=== PATIENT | male | born 1995 | race Caucasian/White ===

== ENCOUNTER 2023-09-25 19:59 | Inpatient (IN) | payer OTHER, SELFPAY ==
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
--- OUTSIDE RECORDS SUMMARY | 2023-09-25 20:02 | XMS_ITS | Continuity of Care Document ---
Author Organization [facility] Address [address] [place] [address]- Care Team Providers Care Rn Mds Coordinator Name Role Phone Emeli Barreto NP Primary Care Physician [place] [facility] [place](s[place] 04/22/21 - 05/22/21 [facility] [address] [place] [address] Attending Physician: Eloisa Erickson Admitting Physician: AdmtrEloisa Referring Physician: Admtr, ArArun Allergies, Adverse Reactions, Alerts Substance Reaction Severity [...] Note: vis given 9Admin Note: TD Medications aspirin 81 mg oral tablet, chewable 81 mg, By Mouth, Daily, # 30 tablet, Refills 0, Tot. Refills 0, Maintenance, 11/18/20 12:24:00 EDT,Route to Pharmacy Electronically, [facility]/pharmacy #[id number], Partial fill upon patient request if the prescription is for a schedule II opioid drug., 180, cm,... Start Date: 11/18/20 Status: Ordered gabapentin 300 mg oral capsule 300 mg, 1, capsule, By Mouth, 3 times a day, # 90 capsule, Refills 0, Tot. Refills 0, Maintenance, 11/18/20 12:25:00 EDT, Route to Pharmacy Electronically, [facility]/pharmacy #[id number], Partial fill upon patient request if the prescription is for a schedule II... Start Date: 11/18/20 Status: Ordered lidocaine 5% topical film See Instructions, Topically Daily, # 30 patch, 0 Refills, Maintenance, 11/18/20 12:25:00 EDT, Patch, [facility]/pharmacy #[id number], Partial fill upon patient request if the prescription is for a schedule II opioid drug., Topically Daily, 180, cm, 11/12/20 10:09:... Start Date: 11/18/20 Status: Ordered pantoprazole 40 mg oral delayed release tablet = 40 mg, By Mouth, 2 times a day, # 30 capsule, 0 Refills, Maintenance, 11/18/20 12:26:00 EDT, EC Tablet, 180, cm, 11/12/20 10:09:00 EDT, Height, 59.5, kg, 11/01/20 16:46:00 EDT, Dry Weight Start Date: 11/18/20 Status: Ordered propranolol 10 mg oral tablet 10 mg, 1, tablet, By Mouth, Every 8 hours, # 90 tablet, Refills 0, Tot. Refills 0, Maintenance, 11/18/20 12:27:00 EDT, Route to Pharmacy Electronically, [facility]/pharmacy #[id number], Partial fill upon patient request if the prescription is for a schedule II opi... Start Date: 11/18/20 Status: Ordered traMADol 50 mg oral tablet 1 tablet = 50 mg, By Mouth, Every 6 hours, 0 Refills, Maintenance, 11/28/20 13:48:00 EDT, Partial fill upon patient request if the prescription is for a schedule II opioid drug. Start Date: 11/28/20 Status: Ordered Problem List Condition Effective Dates [...] Post traumatic stress disord er (PTSD)(Confirmed) Active Scoliosis(Confirmed) 94 Active Pneumatocele of lung(Confirmed) Active Thrombocytosis(Confirmed) Active Underweight(Confirmed) Active Social History Social History Type Response Smoking Status Former smoker, quit more than 30 days ago entered on: 12/13/20 Sex
--- OUTSIDE RECORDS SUMMARY | 2023-09-25 20:03 | XMS_ITS | Continuity of Care Document ---
Author Organization [facility] Address [address] [place] [address]- Care Team Providers Care Administrative Program Specialist Name Role Phone Emeli Barreto NP Primary Care Physician Encounter [facility] Date(s): 09/11/21 - 09/18/21 [facility] Adult [address] [place] [address]- Encounter Diagnosis Chronic back pain(Discharge Diagnosis) - 09/15/21 Chronic neck pain(Discharge Diagnosis) - 09/15/21 Attending Physician: Ozzie Cochran MD Referring Physician: Emeli Barreto NP Allergies, Adverse Reactions, Alerts Substance Reaction Severity Status Adhesive Bandage 1 rash Active 1Clear Surgical Tape Immunizations Given and Recorded Vaccine Date Status Refusal Reason hepatitis B adult vaccine 03/25/21 Given influenza virus vaccine, inactivated 03/25/21 Give n influenza virus vaccine, inactivated 04/25/10 Give n influenza virus vaccine, inactivated 1 04/07/10 Gi keay Meningococcal Conjugate Vaccine 03/25/21 Given Meningococcal Conjugate [...] 06/24/21 10:08:00 EST, Route to Pharmacy Electronically, [facility]/pharmacy #[id number], Partial fill upon patient request if the [...] Thrombocytosis(Confirmed) Active Brain injury(Confirmed) Active Underweight(Confirmed) Active Diagnosis Diagnosis Type Effective Dates Health Status Cl inical Service Informant Chronic back pain Discharge Diagnosis 09/15/21 Chronic neck pain Discharge Diagnosis 09/15/21 Vital Signs Most recent to oldest [Reference Range]: 1 Height 180 cm (09/11/21 1:15 PM) Weight 58.8 kg (09/11/21 1:15 PM) Oxygen Saturation [94-100 %] 100 % (09/11/21 1:15 PM) Pulse Rate [55-90 bpm] 79 bpm (09/11/21 1:15 PM) Body Mass Index [18.5-24.99] 18.15 *L* (09/11/21 1:15 PM) Blood Pressure [90-138/55-84 mm Hg] 111/ 58mm Hg (09/11/21 1:15 PM) Temperature [96.8-100.4 DegF] 97.9 DegF (09/11/21 1:15 PM) Blood pressure sites Arm, right (09/11/21 1:15 PM) Temperature Route Oral (09/11/21 1:15 PM) Weight Obtained Via Standing scale (09/11/21 1:15 PM) Social History Social History Type Response Smoking Status Former smoker, quit more than 30 days ago entered on: 12/13/20 Sex
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
--- OUTSIDE RECORDS SUMMARY | 2023-09-25 20:03 | XMS_ITS | Continuity of Care Document ---
Author Organization [facility] Address [address] [place] [address]- Care Team Providers Care Data Processing Operator Name Role Phone Dorcas Coulter Primary Care Physician Encounter [facility] Date(s): 10/30/22 - 12/11/22 [facility] Adult [address] [place] [address]- Attending Physician: Dorcas Coulter Allergies, Adverse Reactions, Alerts Substance Reaction Severity [...] Thrombocytosis Confirmed Active Brain injury Confirmed Active Social History Social History Type Response Smoking Status Former smoker, quit more than 30 days ago entered on: 12/13/20 Sex Patient Care team information Care Team Personnel Name: Carmelo Cleaning RN Position: [facility] ED RN W/OE and Tasks Member Role: Primary Care Nurse Name: Abel Egan RN Position: [facility] RN Member Role: Primary Care Nurse Name: Sofi Lord RN Position: [facility] RN Member Role: Primary Care Nurse Name: Farheen Man RN Position: [facility] RN Member Role: Primary Care Nurse Name: Hermes Lazaro RN Position: [facility] RN Supv Member Role: Primary Care Nurse Name: Dorcas Coulter Position: [facility] PCO Associate Professional Member Role: PCP Address: Address: [address] [place] [address]- Name: Alyssa Denson RN Position: [facility] RN Member Role: Primary Care Nurse Name: Tod Monzon RN Position: [facility] RN Member Role: Primary Care Nurse Name: Erum Farley NP Position: [facility] Associate Professional Member Role: Primary Care Nurse Address: Address: [address] [place] [address] [place] [address]- Care Team Related Persons Name: GUDELIA ZULETA Address: home [address] [place] [id number] Name: AMISHA FARMER Address: home [address] [place] [address] Name: AMISHA FARMER Address: [address] [place] [address] Name: SHRUTHI BRADY Address: [address] [address]
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
--- OUTSIDE RECORDS SUMMARY | 2023-09-25 20:03 | XMS_ITS | Continuity of Care Document ---
Author Organization [facility] Address [address] [place] [address] ve [address] [place] [address]- Care Team Providers Care Braker Passenger Train Name Role Phone Estevan AVERY, Emeli Primary Care Physician [phone] [facility]counter [facility] Date(s): 11/28/20 - 12/28/[address] [place] [address]- Attending Physician: Eloisa Erickson Admitting Physician: Eloisa Erickson Referring Physician: AdmtrEloisa Allergies, Adverse Reactions, Alerts Substance Reaction Severity Status Adhesive Bandage 1 Active 1Clear Surgical Tape Immunizations Given and Recorded Vaccine Date Status Refusal Reason meningococcal group B vaccine 11/26/20 Given meningococcal group B vaccine 1 10/23/20 Given haemophilus b conjugate (PRP-T) vaccine 10/25/20 G iven Meningococcal Conjugate Vaccine 2 10/23/20 Given Meningococcal Conjugate Vaccine 3 05/26/07 Given pneumococcal 13-valent vaccine 4 10/23/20 Given Varicella Virus Vaccine 04/25/10 Given Varicella Virus Vaccine 5 10/16/95 Given Hepatitis A Pediatric Vaccine 04/25/10 Given influenza virus vaccine, inactivated 04/25/10 Give n influenza virus vaccine, inactivated 6 04/07/10 Gi keya influ virus vac, H1N1, inactive(oldterm) 7 04/08/09 [...] Hepatitis B Vaccine (old term) 94 Given 1Early/Late Reason: Early/Late Reason: Other : waiting on dose from pharmacy 2Early/Late Reason: Early/Late Reason: Other : waiting on dose from pharmacy 3Admin Note: VIS GIVEN---MENACTRA, SANOFI PASTEUR 4Early/Late Reason: Early/Late Reason: Other : waiting for dose from pharmacy 5Admin Note: disease on 6Result Comment: influenza not given at this time, patient to return with mother. 7Admin Note: vis given 8Admin Note: vis given 9Admin Note: TD Medications amantadine 100 mg oral capsule 100 mg, 1, capsule, By Mouth, 2 times a day, # 60 capsule, Refills 0, Tot. Refills 0, Acute 01/14/21 12:00:00 EDT, 11/18/20 12:24:00 EDT, Route to Pharmacy Electronically, [facility]/pharmacy #[id number], Partialfill upon patient request if the prescription is fo... Start Date: 11/18/20 Stop Date: 01/14/21 Status: Ordered aspirin 81 mg oral tablet, chewable 81 mg, By Mouth, Daily, # 30 tablet, Refills 0, Tot. Refills 0, Maintenance, 11/18/20 12:24:00 EDT,Route to Pharmacy Electronically, [facility]/pharmacy #[id number], Partial fill upon patient request if the prescription is for a schedule II opioid drug., 180, cm,... Start Date: 11/18/20 Status: Ordered gabapentin 300 mg oral capsule 300 mg, 1, capsule, By Mouth, 3 times a day, # 90 capsule, Refills 0, Tot. Refills 0, Maintenance, 11/18/20 12:25:00 EDT, Route to Pharmacy Electronically, [facility]/pharmacy #[id number], Partial fill upon patient request if the prescription is for a schedule II... Start Date: 11/18/20 Status: Ordered lidocaine 5% topical film See Instructions, Topically Daily, # 30 patch, 0 Refills, Maintenance, 11/18/20 12:25:00 EDT, Patch, [facility]/pharmacy #[id number], Partial fill upon patient request if the prescription is for a schedule II opioid drug., Topically Daily, 180, cm, 11/12/20 10:09:... Start Date: 11/18/20 Status: Ordered melatonin 3 mg oral tablet, extended release = 9 mg, By Mouth, Daily at bedtime, PRN Sleep, # 60 tablet, 0 Refills, Acute 01/14/21 12:00:00 EDT,11/18/20 12:26:00 EDT, ER Tablet, [facility]/pharmacy #[id number], Partial fill upon patient request if the prescription is for a schedule II opioid drug., 9 mg By... Start Date: 11/18/20 Stop Date: 01/14/21 Status: Ordered pantoprazole 40 mg oral delayed [...] 11/18/20 12:27:00 EDT, Route to Pharmacy Electronically, [facility]/pharmacy #[id number], Partial fill upon patient request if [...]
--- OUTSIDE RECORDS SUMMARY | 2023-09-25 20:03 | XMS_ITS | Continuity of Care Document ---
Author Organization [facility] Kyle Rob lt Address [address] [place] [address]- Care Team Providers Care Mortgage Closing Clerk Name Role Phone Emeli Barreto NP Primary Care Physician [facility] Date[facility]s): 12/17/20 - 01/16/21 [facility] [place] Adult [address] [place] [address]- Attending Physician: Admtr, Bry8 Admitting Physician: Admtr, Eloisa Referring Physician: Admtr, Ar8 Allergies, Adverse Reactions, [...] Maintenance, 11/18/20 12:24:00 EDT,Route to Pharmacy Electronically, [facility]/pharmacy #[id number], Partial fill upon patient request if the prescription is for a schedule II opioid drug., 180, cm,... Start Date: 11/18/20 Status: Ordered gabapentin 300 mg oral capsule 300 mg, 1, capsule, By Mouth, 3 times a day, # 90 capsule, Refills 0, Tot. Refills 0, Maintenance, 11/18/20 12:25:00 EDT, Route to Pharmacy Electronically, [facility]/pharmacy #[id number], Partial fill upon patient request if the prescription is for a schedule II... Start Date: 11/18/20 Status: Ordered lidocaine 5% topical film See Instructions, Topically Daily, # 30 patch, 0 Refills, Maintenance, 11/18/20 12:25:00 EDT, Patch, [facility]/pharmacy #[id number], Partial fill upon patient request if [...] 11/18/20 12:27:00 EDT, Route to Pharmacy Electronically, [facility]/pharmacy #[id number], Partial fill upon patient request if [...]
--- OUTSIDE RECORDS SUMMARY | 2023-09-25 20:03 | XMS_ITS | Continuity of Care Document ---
Author Organization [facility] Kyle Rob Address [address] [place] [address]- Care Team Providers Care Group Social Worker Name Role Phone Estevan AVERY, Emeli Primary Care Physician [place] [facility] [place] - 04/29/21 [facility] Franko Kirkley Adult [address] [place] [address]- Encounter Diagnosis Chronic headaches(Discharge Diagnosis) - 04/22/21 Memory loss(Discharge Diagnosis) - 04/22/21 Elevated alkaline phosphatase level(Discharge Diagnosis) - 04/22/21 Thrombocytosis(Discharge Diagnosis) - 04/22/21 History of splenectomy(Discharge Diagnosis) - 04/29/21 Attending Physician: Emeli Barreto NP Referring Physician: Zhen Crowley MD Allergies, Adverse Reactions, Alerts Substance Reaction [...] Maintenance, 11/18/20 12:24:00 EDT,Route to Pharmacy Electronically, [facility]/pharmacy #[id number], Partial fill upon patient request if the prescription is for a schedule II opioid drug., 180, cm,... Start Date: 11/18/20 Status: Ordered gabapentin 300 mg oral capsule 300 mg, 1, capsule, By Mouth, 3 times a day, # 90 capsule, Refills 0, Tot. Refills 0, Maintenance, 11/18/20 12:25:00 EDT, Route to Pharmacy Electronically, [facility]/pharmacy #[id number], Partial fill upon patient request if the prescription is for a schedule II... Start Date: 11/18/20 Status: Ordered lidocaine 5% topical film See Instructions, Topically Daily, # 30 patch, 0 Refills, Maintenance, 11/18/20 12:25:00 EDT, Patch, [facility]/pharmacy #[id number], Partial fill upon patient request if the prescription is for a schedule II opioid drug., Topically Daily, 180, cm, 11/12/20 10:09:... Start Date: 11/18/20 Status: Ordered Mavyret 100 mg-40 mg oral tablet 3 tablet, By Mouth, Daily, with food, # 84 tablet, 1 Refills, Acute 05/19/21 14:30:00 EST, :53:00 EST, Tablet, [facility], Partial fill upon patient [...] 11/18/20 12:27:00 EDT, Route to Pharmacy Electronically, [facility]/pharmacy #[id number], Partial fill upon patient request if [...] of lung(Confirmed) Active Thrombocytosis(Confirmed) Active Underweight(Confirmed) Active Diagnosis Diagnosis Type Effective Dates Health Status Clinical Service Informant Chronic headaches Discharge Diagnosis 04/22/21 Memory loss Discharge Diagnosis 04/22/21 Elevated alkaline phosphatase level Discharge Diagnosis 04/22/21 Thrombocytosis Discharge Diagnosis 04/22/21 History of splenectomy Discharge Diagnosis 04/29/21 Vital Signs Most recent to oldest [Reference Range]: 1 Height 180 cm (04/22/21 4:00 PM) Weight 59.6 kg (04/22/21 4:00 PM) Oxygen Saturation [94-100 %] 98 % (04/22/21 4:00 PM) Pulse Rate [55-90 bpm] 78 bpm (04/22/21 4:00 PM) Body Mass Index [18.5-24.99] 18.4 *L* (04/22/21 4:00 PM) Blood Pressure [90-138/55-84 mm Hg] 134/ 83mm Hg (04/22/21 4:00 PM) Blood pressure sites Arm, right (04/22/21 4:00 PM) Social History Social History Type Response Smoking Status Former smoker, quit more than 30 days ago entered on: 12/13/20 Sex
--- OUTSIDE RECORDS SUMMARY | 2023-09-25 20:03 | XMS_ITS | Continuity of Care Document ---
Author Organization [facility] Kyle Rob Address [address] [place] [address]- Care Team Providers Care Copier Operator Name Role Phone Emeli Barreto NP Primary Care Physician [phone] [facility] Date(s): 12/17/20 - 01/16/21 [facility] Adult [address] [place] [address]- Attending Physician: Admtr, Bry8 Admitting Physician: Admtr, [...] Maintenance, 11/18/20 12:24:00 EDT,Route to Pharmacy Electronically, [facility]/pharmacy #[id number], Partial fill upon patient request if the prescription is for a schedule II opioid drug., 180, cm,... Start Date: 11/18/20 Status: Ordered gabapentin 300 mg oral capsule 300 mg, 1, capsule, By Mouth, 3 times a day, # 90 capsule, Refills 0, Tot. Refills 0, Maintenance, 11/18/20 12:25:00 EDT, Route to Pharmacy Electronically, [facility]/pharmacy #[id number], Partial fill upon patient request if the prescription is for a schedule II... Start Date: 11/18/20 Status: Ordered lidocaine 5% topical film See Instructions, Topically Daily, # 30 patch, 0 Refills, Maintenance, 11/18/20 12:25:00 EDT, Patch, [facility]/pharmacy #[id number], Partial fill upon patient request [...] 11/18/20 12:27:00 EDT, Route to Pharmacy Electronically, [facility]/pharmacy #[id number], Partial fill upon patient request [...]
--- OUTSIDE RECORDS SUMMARY | 2023-09-25 20:03 | XMS_ITS | Continuity of Care Document ---
Author Organization [facility] Address Unknown Care Team Providers Care Log Chipper Name Role Phone Estevan AVERY, Emeli Primary Care Physician [phone] [facility]counter [facility] Date(s): 04/23/21 - 05/23/21 [facility] Allergies, Adverse Reactions, Alerts Substance Reaction Severity [...] Maintenance, 11/18/20 12:24:00 EDT,Route to Pharmacy Electronically, [facility]/pharmacy #[id number], Partial fill upon patient request [...] 0 Refills, Maintenance, 11/18/20 12:25:00 EDT, Patch, [facility]/pharmacy #[id number], Partial fill upon patient request [...] 11/18/20 12:27:00 EDT, Route to Pharmacy Electronically, [facility]/pharmacy #[id number], Partial fill upon patient request [...]
--- OUTSIDE RECORDS SUMMARY | 2023-09-25 20:03 | XMS_ITS | Continuity of Care Document ---
Author Organization [facility] Address [address] [place] [address]- Care Team Providers Care Room Service Food Server Name Role Phone Emeli Barreto NP Primary Care Physician [place] [facility] [place] - 04/24/21 [facility] [address] [place] [address] Attending Physician: Manan Evans MD Admitting Physician: Manan Evans MD Referring Physician: Emeli Barreto NP Allergies, [...] EDT,Route to Pharmacy Electronically, [facility]/pharmacy #[id number], Partial fill upon patient request if the [...] Acute 05/19/21 14:30:00 EST, :53:00 EST, Tablet, [facility], Partial fill upon patient request [...]
--- OUTSIDE RECORDS SUMMARY | 2023-09-25 20:03 | XMS_ITS | Continuity of Care Document ---
Author Organization [facility] Kyle Rob Address [address] [place] [address]- Care Team Providers Care Outcomes Manager Name Role Phone Estevan AVERY, Emeli Primary Care Physician [facility] Date(s): 01/03/21 - 02/02/21 [facility] Adult [address] [place] [address]- Allergies, Adverse Reactions, Alerts Substance Reaction Severity [...] Maintenance, 11/18/20 12:24:00 EDT,Route to Pharmacy Electronically, [facility]/pharmacy #[id number], Partial fill [...] 0 Refills, Maintenance, 11/18/20 12:25:00 EDT, Patch, [facility]/pharmacy #[id number], Partial fill upon patient [...] 11/18/20 12:27:00 EDT, Route to Pharmacy Electronically, [facility]/pharmacy #[id number], Partial fill upon patient [...]
--- OUTSIDE RECORDS SUMMARY | 2023-09-25 20:03 | XMS_ITS | Continuity of Care Document ---
Author Organization [facility] Franko Wright Rob Address [address] [place] [address]- Care Team Providers Care Corrugator Name Role Phone Estevan AVERY, Emeli Primary Care Physician [phone] [facility] Date(s): 07/25/21 - 08/24/21 [facility] Wright Adult [address] [place] [address]- Allergies, Adverse Reactions, Alerts Substance Reaction Severity [...] 06/24/21 10:08:00 EST, Route to Pharmacy Electronically, [facility]/pharmacy #[id number], Partial fill upon patient request if the [...]
--- OUTSIDE RECORDS SUMMARY | 2023-09-25 20:03 | XMS_ITS | Continuity of Care Document ---
Author Organization [facility] ter Address [address] [place] [address]- Care Team Providers Care Seafood Manager Name Role Phone Estevan AVERY, Emeli Primary Care Physician [phone] [facility]counter [facility] Date(s): 01/09/21 - 03/12/[address] [address] Attending Physician: Kristina Bullock MD Admitting Physician: Kristina Bullock MD Referring Physician: Kristina Bullock MD Allergies, Adverse Reactions, Alerts Substance Reaction [...] Maintenance, 11/18/20 12:24:00 EDT,Route to Pharmacy Electronically, [facility]/pharmacy #[id number], Partial fill upon patient request if the prescription is for a schedule II opioid drug., 180, cm,... Start Date: 11/18/20 Status: Ordered gabapentin 300 mg oral capsule 300 mg, 1, capsule, By Mouth, 3 times a day, # 90 capsule, Refills 0, Tot. Refills 0, Maintenance, 11/18/20 12:25:00 EDT, Route to Pharmacy Electronically, [facility]/pharmacy #[id number], Partial fill upon patient request if the prescription is for a schedule II... Start Date: 11/18/20 Status: Ordered lidocaine 5% topical film See Instructions, Topically Daily, # 30 patch, 0 Refills, Maintenance, 11/18/20 12:25:00 EDT, Patch, [facility]/pharmacy #[id number], Partial fill upon patient request if the prescription is for a schedule II opioid drug., Topically Daily, 180, cm, 11/12/20 10:09:... Start Date: 11/18/20 Status: Ordered oxyCODONE 5 mg oral tablet 5 mg, 1, tablet, By Mouth, Every 6 hours, PRN, # 18 tablet, Refills 0, Tot. Refills 0, Acute 03/15/21 14:50:00 EDT, Pain , Severe, 03/11/21 14:50:00 EDT, Route to Pharmacy Electronically, [facility]/pharmacy #[id number], Partial fill upon patient request if the pr... Start Date: 03/11/21 Stop Date: 03/15/21 Status: Ordered pantoprazole 40 mg oral delayed [...] 11/18/20 12:27:00 EDT, Route to Pharmacy Electronically, [facility]/pharmacy #[id number], Partial fill upon patient request if [...]
--- OUTSIDE RECORDS SUMMARY | 2023-09-25 20:03 | XMS_ITS | Continuity of Care Document ---
Author Organization [facility] Address [address] [place] [address] Dr [address] [place] [address]- Care Team Providers Care Director On Air Name Role Phone Estevan AVERY, Emeli Primary Care Physician [facility] Date(s): 11/15/20 - 12/19/[address] [place], [place] [address] Attending Physician: Josh Borrego MD Allergies, Adverse Reactions, Alerts Substance Reaction [...] 11/18/20 12:24:00 EDT, Route to Pharmacy Electronically, [facility]/pharmacy #[id number], Partialfill upon patient request if the prescription is fo... Start Date: 11/18/20 Stop Date: 01/14/21 Status: Ordered aspirin 81 mg oral tablet, chewable 81 mg, By Mouth, Daily, # 30 tablet, Refills 0, Tot. Refills 0, Maintenance, 11/18/20 12:24:00 EDT,Route to Pharmacy Electronically, [facility]/pharmacy #[id number], Partial fill upon patient request if the prescription is for a schedule II opioid drug., 180, cm,... Start Date: 11/18/20 Status: Ordered gabapentin 300 mg oral capsule 300 mg, 1, capsule, By Mouth, 3 times a day, # 90 capsule, Refills 0, Tot. Refills 0, Maintenance, 11/18/20 12:25:00 EDT, Route to Pharmacy Electronically, [facility]/pharmacy #[id number], Partial fill upon patient request if the prescription is for a schedule II... Start Date: 11/18/20 Status: Ordered lidocaine 5% topical film See Instructions, Topically Daily, # 30 patch, 0 Refills, Maintenance, 11/18/20 12:25:00 EDT, Patch, [facility]/pharmacy #[id number], Partial fill upon patient request if the prescription is for a schedule II opioid drug., Topically Daily, 180, cm, 11/12/20 10:09:... Start Date: 11/18/20 Status: Ordered melatonin 3 mg oral tablet, extended release = 9 mg, By Mouth, Daily at bedtime, PRN Sleep, # 60 tablet, 0 Refills, Acute 01/14/21 12:00:00 EDT,11/18/20 12:26:00 EDT, ER Tablet, [facility]/pharmacy #[id number], Partial fill upon patient request [...] 11/18/20 12:27:00 EDT, Route to Pharmacy Electronically, [facility]/pharmacy #[id number], Partial fill upon patient request [...]
--- OUTSIDE RECORDS SUMMARY | 2023-09-25 20:03 | XMS_ITS | Continuity of Care Document ---
Author Organization [facility] Address [address] [place] [address]- Care Team Providers Care Grain Buyer Name Role Phone Estevan AVERY, Emeli Primary Care Physician [facility] Date[facility]s): 11/11/20 - 01/26/21 [facility] [address] [place], [place] [address] Attending Physician: Manan Evans MD Admitting Physician: Manan Evans MD Referring Physician: Manan Evans MD Allergies, Adverse Reactions, Alerts Substance Reaction [...] Maintenance, 11/18/20 12:24:00 EDT,Route to Pharmacy Electronically, [facility]/pharmacy #[id number], Partial fill upon [...] 0 Refills, Maintenance, 11/18/20 12:25:00 EDT, Patch, [facility]/pharmacy #[id number], Partial fill upon [...] 11/18/20 12:27:00 EDT, Route to Pharmacy Electronically, [facility]/pharmacy #[id number], Partial fill upon [...]
--- OUTSIDE RECORDS SUMMARY | 2023-09-25 20:03 | XMS_ITS | Continuity of Care Document ---
Author Organization [facility] Franko Wright Rob Address [address] [place] [address]- Care Team Providers Care Carpenter Cradle And Dolly Name Role Phone Estevan AVERY, Emeli Primary Care Physician [phone] [facility]counter [facility] Date(s): 03/05/21 - 04/04/21 [facility] Franko Kirkley Adult [address] [place] [address]- Allergies, Adverse Reactions, Alerts Substance Reaction Severity [...] Maintenance, 11/18/20 12:24:00 EDT,Route to Pharmacy Electronically, [facility]/pharmacy #[id number], Partial fill upon patient request if the prescription is for a schedule II opioid drug., 180, cm,... Start Date: 11/18/20 Status: Ordered gabapentin 300 mg oral capsule 300 mg, 1, capsule, By Mouth, 3 times a day, # 90 capsule, Refills 0, Tot. Refills 0, Maintenance, 11/18/20 12:25:00 EDT, Route to Pharmacy Electronically, [facility]/pharmacy #[id number], Partial fill upon patient request if the prescription is for a schedule II... Start Date: 11/18/20 Status: Ordered lidocaine 5% topical film See Instructions, Topically Daily, # 30 patch, 0 Refills, Maintenance, 11/18/20 12:25:00 EDT, Patch, [facility]/pharmacy #[id number], Partial fill upon patient request if the prescription is for a schedule II opioid drug., Topically Daily, 180, cm, 11/12/20 10:09:... Start Date: 11/18/20 Status: Ordered Mavyret 100 mg-40 mg oral tablet 3 tablet, By Mouth, Daily, with food, # 84 tablet, 1 Refills, Acute 05/19/21 14:30:00 EST, 219:53:00 EST, Tablet, [facility], Partial fill upon patient [...] 11/18/20 12:27:00 EDT, Route to Pharmacy Electronically, [facility]/pharmacy #[id number], Partial fill upon patient request if [...]
--- OUTSIDE RECORDS SUMMARY | 2023-09-25 20:03 | XMS_ITS | Continuity of Care Document ---
Author Organization [facility] Address [address] [place] [address]- Care Team Providers Care Grinding Machine Tender Name Role Phone Emeli Barreto NP Primary Care Physician En[place] [facility] Date(s): 11/19/20 - 12/19/20 [facility] [address] [place] [address] Attending Physician: Eloisa Erickson Admitting Physician: AdmEloisa patel Referring Physician: Admtr, ArArun Allergies, Adverse Reactions, [...] 11/18/20 12:24:00 EDT, Route to Pharmacy Electronically, [facility]/pharmacy #[id number], Partialfill upon patient request if the prescription is fo... Start Date: 11/18/20 Stop Date: 01/14/21 Status: Ordered aspirin 81 mg oral tablet, chewable 81 mg, By Mouth, Daily, # 30 tablet, Refills 0, Tot. Refills 0, Maintenance, 11/18/20 12:24:00 EDT,Route to Pharmacy Electronically, [facility]/pharmacy #[id number], Partial fill upon patient request if the prescription is for a schedule II opioid drug., 180, cm,... Start Date: 11/18/20 Status: Ordered gabapentin 300 mg oral capsule 300 mg, 1, capsule, By Mouth, 3 times a day, # 90 capsule, Refills 0, Tot. Refills 0, Maintenance, 11/18/20 12:25:00 EDT, Route to Pharmacy Electronically, [facility]/pharmacy #[id number], Partial fill upon patient request if the prescription is for a schedule II... Start Date: 11/18/20 Status: Ordered lidocaine 5% topical film See Instructions, Topically Daily, # 30 patch, 0 Refills, Maintenance, 11/18/20 12:25:00 EDT, Patch, [facility]/pharmacy #[id number], Partial fill upon patient request if the prescription is for a schedule II opioid drug., Topically Daily, 180, cm, 11/12/20 10:09:... Start Date: 11/18/20 Status: Ordered melatonin 3 mg oral tablet, extended release = 9 mg, By Mouth, Daily at bedtime, PRN Sleep, # 60 tablet, 0 Refills, Acute 01/14/21 12:00:00 EDT,11/18/20 12:26:00 EDT, ER Tablet, [facility]/pharmacy #[id number], Partial fill upon patient request [...] 11/18/20 12:27:00 EDT, Route to Pharmacy Electronically, [facility]/pharmacy #[id number], Partial fill upon patient request [...]
--- OUTSIDE RECORDS SUMMARY | 2023-09-25 20:03 | XMS_ITS | Continuity of Care Document ---
Author Organization [facility] Address [address] [place] [address]- Care Team Providers Care Complaint Evaluation Officer Name Role Phone Emeli Barreto NP Primary Care Physician [place] [facility] [place] - 02/06/21 [facility] [address] [place] [id number] Attending Physician: Eloisa Erickson Admitting Physician: AdmEloisa [...] Maintenance, 11/18/20 12:24:00 EDT,Route to Pharmacy Electronically, [facility]/pharmacy #[id number], Partial fill upon patient request if the prescription is for a schedule II opioid drug., 180, cm,... Start Date: 11/18/20 Status: Ordered gabapentin 300 mg oral capsule 300 mg, 1, capsule, By Mouth, 3 times a day, # 90 capsule, Refills 0, Tot. Refills 0, Maintenance, 11/18/20 12:25:00 EDT, Route to Pharmacy Electronically, [facility]/pharmacy #[id number], Partial fill upon patient request if the prescription is for a schedule II... Start Date: 11/18/20 Status: Ordered lidocaine 5% topical film See Instructions, Topically Daily, # 30 patch, 0 Refills, Maintenance, 11/18/20 12:25:00 EDT, Patch, [facility]/pharmacy #[id number], Partial fill upon patient [...] 11/18/20 12:27:00 EDT, Route to Pharmacy Electronically, [facility]/pharmacy #[id number], Partial fill upon patient [...]
--- OUTSIDE RECORDS SUMMARY | 2023-09-25 20:03 | XMS_ITS | Continuity of Care Document ---
Author Organization [facility] ter Address [address] [place] [address]- Care Team Providers Care Tankerman Name Role Phone Emeli Barreto NP Primary Care Physician [phone] Encounter [facility] Date(s): 03/11/21 - 03/11/[address] [address] Discharge Disposition: A-D/C Home Attending Physician: Elkin Grant MD Admitting Physician: Elkin Grant MD Referring Physician: Elkin Grant MD Allergies, Adverse Reactions, [...] Maintenance, 11/18/20 12:24:00 EDT,Route to Pharmacy Electronically, [facility]/pharmacy #[id number], Partial fill upon [...] 0 Refills, Maintenance, 11/18/20 12:25:00 EDT, Patch, [facility]/pharmacy #[id number], Partial fill upon [...] 03/11/21 14:50:00 EDT, Route to Pharmacy Electronically, [facility]/pharmacy #[id number], Partial fill upon patient request if the pr... Start Date: 03/11/21 Stop Date: 03/15/21 Status: Ordered OxyCODONE IR Tablet 5 mg, Tablet, By Mouth, Every 4 hours, in PACU ONLY, if patient can tolerate PO, PRN for Pain , Mild, Routine, 03/11/21 14:52:00 EDT Start Date: 03/11/21 Stop Date: 03/18/21 Status: Ordered pantoprazole 40 mg oral delayed [...] 11/18/20 12:27:00 EDT, Route to Pharmacy Electronically, [facility]/pharmacy #[id number], Partial fill upon [...] Scoliosis(Confirmed) 94 Active Pneumatocele of lung(Confirmed) Active Procedures Procedure Date Related Diagnosis Body Site Status Manipulation of ankle under general anesthesia (includes application of traction or other fixation apparatus) 1 03/11/21 Completed Removal of implant; superfic ial (eg, buried wire, pin or kassi) (separate procedure) 2 03/11/21 Completed Repair, nonunion or malunion , femur, 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; without graft (eg, compression technique) 3 03/11/21 Co mpleted 1reduced services, left ankle able to dorsiflex to 20 degrees in neutral with 2 manipulations 2left tibia- trigen kassi, 2 screws 3left femur nonunion- exchange distal screw, remove proximal (deep) Results Radiology Reports * Exam Date Time Procedure Performing Provider Status 03/11/21 2:33 PM C-Arm < 1 Hour Inocencia Null (Verified) Notes: (C-Arm < 1 Hour) Reason For Exam: LT Leg hardware removal RESULT: C-Arm < 1 Hour Femur 2 Views Left, C-Arm < 1 Hour INDICATION: LT leg hardware removal COMPARISONS: Left femur radiograph 10/31/2020. TECHNIQUE: Fluoroscopy support was provided. There was no radiologist in attendance. Fluoroscopy time: 22 seconds. Technologist time: 25 minutes. Exposure: 1.26 mGy FINDINGS: 4 selected intraoperative fluoroscopic images of the left femur and proximal lower leg demonstrate portions of the intramedullary rods. There has been removed. The proximal interlocking femoral screwand final image demonstrates removal of the proximal interlocking tibial screw. IMPRESSION: See above. I have personally reviewed the images and I agree with this report. WSN: [id number] Ordering Physician: Elkin Grant MD Dictated By: Dominique Hidalgo DO Dictated Date/Time: 03/11/21 3:06 pm Reviewed By: Jane Prieto MD Signed By: Jane Prieto MD Signed Date/Time: 03/11/21 3:11 pm Transcribed By: MIGUEL ANGEL Transcribed Date/Time: 03/11/21 3:00 pm * Exam Date Time Procedure Performing Provider Status 03/11/21 2:33 PM XR Femur 2 Views Left Jyothi Null; El (Verified) Notes: (XR Femur 2 Views Left) Reason For Exam: LT leg hardware removal RESULT: Femur 2 Views Left Femur 2 Views Left, C-Arm < 1 Hour INDICATION: LT leg hardware removal COMPARISONS: Left femur radiograph 10/31/2020. TECHNIQUE: Fluoroscopy support was provided. There was no radiologist in attendance. Fluoroscopy time: 22 seconds. Technologist time: 25 minutes. Exposure: 1.26 mGy FINDINGS: 4 selected intraoperative fluoroscopic images of the left femur and proximal lower leg demonstrate portions of the intramedullary rods. There has been removed. The proximal interlocking femoral screwand final image demonstrates removal of the proximal interlocking tibial screw. IMPRESSION: See above. I have personally reviewed the images and I agree with this report. WSN: [id number] Ordering Physician: Elkin Grant MD Dictated By: Dominique Hidalgo DO Dictated Date/Time: 03/11/21 3:06 pm Reviewed By: Jane Prieto MD Signed By: Jane Prieto MD Signed Date/Time: 03/11/21 3:11 pm Transcribed By: MIGUEL ANGEL Transcribed Date/Time: 03/11/21 3:00 pm Vital Signs Most recent to oldest [Reference Range]: 1 2 3 Height 180 cm (03/11/21 11:19 AM) 180 cm (03/05/21 4:20 PM) Weight 58 kg (03/11/21 11:19 AM) 58 kg (03/05/21 4:20 PM) Oxygen Saturation [94-100 %] 98 % (03/11/21 3:45 PM) 100 % (03/11/21 3:30 PM) 100 % (03/11/21 3:15 PM) Pulse Rate [55-90 bpm] 62 bpm (03/11/21 11:19 AM) Body Mass Index [18.5-24.99] 17.9 *L* (03/11/21 11:19 AM) 17.9 *L* (03/05/21 4:20 PM) Blood Pressure [90-138/55-84 mm Hg] 120/83mm Hg (03/11/21 3:45 PM) 115/82mm Hg (03/11/21 3:30 PM) 115/82mm Hg (03/11/21 3:15 PM) Respiratory Rate [16-30 br/min] 16 br/min (03/11/21 3:45 PM) 15 br/min *L* (03/11/21 3:32 PM) 19 br/min (03/11/21 3:15 PM) Temperature [96.8-100.4 DegF] 98.1 DegF (03/11/21 3:30 PM) 98.2 DegF (03/11/21 2:55 PM) 97.7 DegF (03/11/21 11:19 AM) Liters per Minute 6 L/min (03/11/21 2:55 PM) Mode of Delivery (Oxygen) Simple face mask (03/11/21 2:55 PM) Room air (03/11/21 11:19 AM) Blood pressure sites Arm, right (03/11/21 3:45 PM) Arm, right (03/11/21 3:30 PM) Arm, right (03/11/21 3:15 PM) Temperature Route Temporal (03/11/21 3:30 PM) Axillary (03/11/21 2:55 PM) Temporal (03/11/21 11:19 AM) Dry Weight 56.5 kg (03/11/21 11:19 AM) 58 kg (03/05/21 4:20 PM) Weight Obtained Via Patient/family state d (03/05/21 4:20 PM) Dry Weight Obtained Via Standing scale (03/11/21 11:19 AM) Patient/family stated (03/05/21 4:20 PM) Social History Social History Type Response Smoking Status Former smoker, quit more than 30 days ago entered on: 12/13/20 Sex
--- OUTSIDE RECORDS SUMMARY | 2023-09-25 20:03 | XMS_ITS | Continuity of Care Document ---
Author Organization [facility] Address [address] [place] [address] ve [address] [place] [address]- Care Team Providers Care Lead Shop Operator Name Role Phone Estevan AVERY, Emeli Primary Care Physician Encounter [facility] Date(s): 11/19/20 - 12/19/[address] [place] [address]- Attending Physician: Eloisa Erickson Admitting Physician: Eloisa [...] 11/18/20 12:24:00 EDT, Route to Pharmacy Electronically, [facility]/pharmacy #[id number], Partialfill upon patient request if the prescription is fo... Start Date: 11/18/20 Stop Date: 01/14/21 Status: Ordered aspirin 81 mg oral tablet, chewable 81 mg, By Mouth, Daily, # 30 tablet, Refills 0, Tot. Refills 0, Maintenance, 11/18/20 12:24:00 EDT,Route to Pharmacy Electronically, [facility]/pharmacy #[id number], Partial fill upon patient request if the prescription is for a schedule II opioid drug., 180, cm,... Start Date: 11/18/20 Status: Ordered gabapentin 300 mg oral capsule 300 mg, 1, capsule, By Mouth, 3 times a day, # 90 capsule, Refills 0, Tot. Refills 0, Maintenance, 11/18/20 12:25:00 EDT, Route to Pharmacy Electronically, [facility]/pharmacy #[id number], Partial fill upon patient request if the prescription is for a schedule II... Start Date: 11/18/20 Status: Ordered lidocaine 5% topical film See Instructions, Topically Daily, # 30 patch, 0 Refills, Maintenance, 11/18/20 12:25:00 EDT, Patch, [facility]/pharmacy #[id number], Partial fill upon patient request if the prescription is for a schedule II opioid drug., Topically Daily, 180, cm, 11/12/20 10:09:... Start Date: 11/18/20 Status: Ordered melatonin 3 mg oral tablet, extended release = 9 mg, By Mouth, Daily at bedtime, PRN Sleep, # 60 tablet, 0 Refills, Acute 01/14/21 12:00:00 EDT,11/18/20 12:26:00 EDT, ER Tablet, [facility]/pharmacy #[id number], Partial fill upon patient [...] 11/18/20 12:27:00 EDT, Route to Pharmacy Electronically, [facility]/pharmacy #[id number], Partial fill upon patient [...]
--- OUTSIDE RECORDS SUMMARY | 2023-09-25 20:03 | XMS_ITS | Continuity of Care Document ---
Author Organization [facility] Rob lt Address [address] [place] [address]- Care Team Providers Care Cover Marker Name Role Phone Emeli Barreto NP Primary Care Physician [phone] Encounter [facility] Date(s): 09/11/21 - 10/11/21 [facility] [address] [place] [address]- Attending Physician: Eloisa Erickson Admitting Physician: Eloisa [...] 06/24/21 10:08:00 EST, Route to Pharmacy Electronically, [facility]/pharmacy #[id number], Partial fill upon patient request if the [...]
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
--- OUTSIDE RECORDS SUMMARY | 2023-09-25 20:03 | XMS_ITS | Continuity of Care Document ---
Author Organization [facility] ter Address [address] [place] [address]- Care Team Providers Care Slab Tripper Name Role Phone Estevan AVERY, Emeli Primary Care Physician [phone] Encounter [facility] Date(s): 09/18/21 - 12/02/[address] [address] Attending Physician: Dorcas Coulter Admitting Physician: Dorcas Coulter Referring Physician: Dorcas Coulter Allergies, Adverse Reactions, Alerts [...] 06/24/21 10:08:00 EST, Route to Pharmacy Electronically, [facility]/pharmacy #[id number], Partial fill upon patient request if the [...]
--- OUTSIDE RECORDS SUMMARY | 2023-09-25 20:03 | XMS_ITS | Continuity of Care Document ---
Author Organization [facility] Address [address] [place] [address]- Care Team Providers Care Auto Dealership Porter Name Role Phone Emeli Barreto NP Primary Care Physician [phone] Encounter [facility] Date(s): 10/30/20 - 12/26/20 [facility] [address] [place] [id number] Attending Physician: Manan Evans MD Admitting Physician: Manan Evans MD Allergies, Adverse Reactions, [...] 11/18/20 12:24:00 EDT, Route to Pharmacy Electronically, [facility]/pharmacy #[id number], Partialfill upon patient request if the prescription is fo... Start Date: 11/18/20 Stop Date: 01/14/21 Status: Ordered aspirin 81 mg oral tablet, chewable 81 mg, By Mouth, Daily, # 30 tablet, Refills 0, Tot. Refills 0, Maintenance, 11/18/20 12:24:00 EDT,Route to Pharmacy Electronically, [facility]/pharmacy #[id number], Partial fill upon patient request if the prescription is for a schedule II opioid drug., 180, cm,... Start Date: 11/18/20 Status: Ordered gabapentin 300 mg oral capsule 300 mg, 1, capsule, By Mouth, 3 times a day, # 90 capsule, Refills 0, Tot. Refills 0, Maintenance, 11/18/20 12:25:00 EDT, Route to Pharmacy Electronically, [facility]/pharmacy #[id number], Partial fill upon patient request if the prescription is for a schedule II... Start Date: 11/18/20 Status: Ordered lidocaine 5% topical film See Instructions, Topically Daily, # 30 patch, 0 Refills, Maintenance, 11/18/20 12:25:00 EDT, Patch, [facility]/pharmacy #[id number], Partial fill upon patient request if the prescription is for a schedule II opioid drug., Topically Daily, 180, cm, 11/12/20 10:09:... Start Date: 11/18/20 Status: Ordered melatonin 3 mg oral tablet, extended release = 9 mg, By Mouth, Daily at bedtime, PRN Sleep, # 60 tablet, 0 Refills, Acute 01/14/21 12:00:00 EDT,11/18/20 12:26:00 EDT, ER Tablet, [facility]/pharmacy #[id number], Partial fill upon [...] 11/18/20 12:27:00 EDT, Route to Pharmacy Electronically, [facility]/pharmacy #[id number], Partial fill upon [...]
--- OUTSIDE RECORDS SUMMARY | 2023-09-25 20:04 | XMS_ITS | Continuity of Care Document ---
Author Organization [facility] Kyle Rob Address [address] [place] [address]- Care Team Providers Care Television News Photographer Name Role Phone Estevan AVERY, Emeli Primary Care Physician [facility]counter [facility] Date(s): 01/21/21 - 03/26/21 [facility] Adult [address] [place] [address]- Attending Physician: Emeli Barreto NP Referring Physician: Carline JAMIL, Zhen Alva Allergies, Adverse Reactions, Alerts Substance Reaction Severity [...] Maintenance, 11/18/20 12:24:00 EDT,Route to Pharmacy Electronically, [facility]/pharmacy #[id number], Partial fill upon patient request if the prescription is for a schedule II opioid drug., 180, cm,... Start Date: 11/18/20 Status: Ordered gabapentin 300 mg oral capsule 300 mg, 1, capsule, By Mouth, 3 times a day, # 90 capsule, Refills 0, Tot. Refills 0, Maintenance, 11/18/20 12:25:00 EDT, Route to Pharmacy Electronically, [facility]/pharmacy #[id number], Partial fill upon patient request if the prescription is for a schedule II... Start Date: 11/18/20 Status: Ordered lidocaine 5% topical film See Instructions, Topically Daily, # 30 patch, 0 Refills, Maintenance, 11/18/20 12:25:00 EDT, Patch, [facility]/pharmacy #[id number], Partial fill upon patient request if the prescription is for a schedule II opioid drug., Topically Daily, 180, cm, 11/12/20 10:09:... Start Date: 11/18/20 Status: Ordered Mavyret 100 mg-40 mg oral tablet 3 tablet, By Mouth, Daily, with food, # 84 tablet, 1 Refills, Acute 05/19/21 14:30:00 EST, :53:00 EST, Tablet, [facility], Partial fill upon patient request [...] 11/18/20 12:27:00 EDT, Route to Pharmacy Electronically, [facility]/pharmacy #[id number], Partial fill upon patient request [...]
--- OUTSIDE RECORDS SUMMARY | 2023-09-25 20:04 | XMS_ITS | Continuity of Care Document ---
Author Organization [facility] Address Unknown Care Team Providers Care Supervisor Estimator And Drafter Name Role Phone Estevan AVERY, Emeli Primary Care Physician [phone] Encounter [facility] Date(s): 06/24/21 - 07/24/21 [facility] Attending Physician: Eloisa Erickson Admitting Physician: Eloisa Erickson Referring Physician: Eloisa Erickson Allergies, Adverse Reactions, Alerts Substance Reaction Severity [...] 06/24/21 10:08:00 EST, Route to Pharmacy Electronically, [facility]/pharmacy #[id number], Partial fill upon patient request if the [...]
--- OUTSIDE RECORDS SUMMARY | 2023-09-25 20:04 | XMS_ITS | Continuity of Care Document ---
Author Organization [facility] Address [address] [place] [address]- Care Team Providers Care Cloth Finishing Range Back Tender Name Role Phone Emeli Barreto NP Primary Care Physician Encounter [facility] Date(s): 11/26/20 - 12/26/20 [facility] [address] [place] [id number] Attending Physician: Eloisa Erickson Admitting Physician: AdmtrEloisa Referring Physician: Admtr, Ar8 [...] 11/18/20 12:24:00 EDT, Route to Pharmacy Electronically, [facility]/pharmacy #[id number], Partialfill upon patient request if the prescription is fo... Start Date: 11/18/20 Stop Date: 01/14/21 Status: Ordered aspirin 81 mg oral tablet, chewable 81 mg, By Mouth, Daily, # 30 tablet, Refills 0, Tot. Refills 0, Maintenance, 11/18/20 12:24:00 EDT,Route to Pharmacy Electronically, [facility]/pharmacy #[id number], Partial fill upon patient request if the prescription is for a schedule II opioid drug., 180, cm,... Start Date: 11/18/20 Status: Ordered gabapentin 300 mg oral capsule 300 mg, 1, capsule, By Mouth, 3 times a day, # 90 capsule, Refills 0, Tot. Refills 0, Maintenance, 11/18/20 12:25:00 EDT, Route to Pharmacy Electronically, [facility]/pharmacy #[id number], Partial fill upon patient request if the prescription is for a schedule II... Start Date: 11/18/20 Status: Ordered lidocaine 5% topical film See Instructions, Topically Daily, # 30 patch, 0 Refills, Maintenance, 11/18/20 12:25:00 EDT, Patch, [facility]/pharmacy #[id number], Partial fill upon patient request if the prescription is for a schedule II opioid drug., Topically Daily, 180, cm, 11/12/20 10:09:... Start Date: 11/18/20 Status: Ordered melatonin 3 mg oral tablet, extended release = 9 mg, By Mouth, Daily at bedtime, PRN Sleep, # 60 tablet, 0 Refills, Acute 01/14/21 12:00:00 EDT,11/18/20 12:26:00 EDT, ER Tablet, [facility]/pharmacy #[id number], Partial fill upon patient request if [...] 11/18/20 12:27:00 EDT, Route to Pharmacy Electronically, [facility]/pharmacy #[id number], Partial fill upon patient request if [...]
--- OUTSIDE RECORDS SUMMARY | 2023-09-25 20:04 | XMS_ITS | Continuity of Care Document ---
Author Organization [facility] Address [address] [place] [address]- Care Team Providers Care Substation Operator Automatic Name Role Phone Emeli Barreto NP Primary Care Physician Encounter [facility] Date(s): 04/24/21 - 05/24/21 [facility] [address] [place] [id number] Allergies, Adverse Reactions, Alerts Substance Reaction Severity [...] 11/18/20 12:24:00 EDT,Route to Pharmacy Electronically, [facility]/pharmacy #[id number], Partial fill upon patient request if the prescription is for a schedule II opioid drug., 180, cm,... Start Date: 11/18/20 Status: Ordered gabapentin 300 mg oral capsule 300 mg, 1, capsule, By Mouth, 3 times a day, # 90 capsule, Refills 0, Tot. Refills 0, Maintenance, 11/18/20 12:25:00 EDT, Route to Pharmacy Electronically, [facility]/pharmacy #[id number], Partial fill upon patient request if the prescription is for a schedule II... Start Date: 11/18/20 Status: Ordered lidocaine 5% topical film See Instructions, Topically Daily, # 30 patch, 0 Refills, Maintenance, 11/18/20 12:25:00 EDT, Patch, [facility]/pharmacy #[id number], Partial fill upon patient request if [...] 12:27:00 EDT, Route to Pharmacy Electronically, [facility]/pharmacy #[id number], Partial fill upon patient request if [...]
--- OUTSIDE RECORDS SUMMARY | 2023-09-25 20:04 | XMS_ITS | Continuity of Care Document ---
Author Organization [facility] Address Unknown Care Team Providers Care Decorator Lighting Fixtures Name Role Phone Estevan AVERY, Emeli Primary Care Physician [phone] [facility]counter [facility] Date(s): 12/13/20 - 04/04/21 [facility] Thor[facility] Attending Physician: Kristina Bullock MD Allergies, Adverse Reactions, [...] Maintenance, 11/18/20 12:24:00 EDT,Route to Pharmacy Electronically, [facility]/pharmacy #[id number], Partial fill upon patient request if the prescription is for a schedule II opioid drug., 180, cm,... Start Date: 11/18/20 Status: Ordered gabapentin 300 mg oral capsule 300 mg, 1, capsule, By Mouth, 3 times a day, # 90 capsule, Refills 0, Tot. Refills 0, Maintenance, 11/18/20 12:25:00 EDT, Route to Pharmacy Electronically, [facility]/pharmacy #[id number], Partial fill upon patient request if the prescription is for a schedule II... Start Date: 11/18/20 Status: Ordered lidocaine 5% topical film See Instructions, Topically Daily, # 30 patch, 0 Refills, Maintenance, 11/18/20 12:25:00 EDT, Patch, [facility]/pharmacy #[id number], Partial fill upon patient request if the prescription is for a schedule II opioid drug., Topically Daily, 180, cm, 11/12/20 10:09:... Start Date: 11/18/20 Status: Ordered Mavyret 100 mg-40 mg oral tablet 3 tablet, By Mouth, Daily, with food, # 84 tablet, 1 Refills, Acute 05/19/21 14:30:00 EST, :53:00 EST, Tablet, [facility], Partial fill [...] 11/18/20 12:27:00 EDT, Route to Pharmacy Electronically, [facility]/pharmacy #[id number], Partial fill upon patient request [...]
--- OUTSIDE RECORDS SUMMARY | 2023-09-25 20:04 | XMS_ITS | Continuity of Care Document ---
Author Organization [facility] Address [address] [place] [address]- Care Team Providers Care Clinical Study Manager Name Role Phone Emeli Barreto NP Primary Care Physician Encounter [facility] Date(s): 12/21/20 - 04/20/21 [facility] [address] [place] [address]- Attending Physician: Dar Tian MD Admitting Physician: Dar Tian MD Referring Physician: Emeli Barreto NP Allergies, [...] 12:24:00 EDT,Route to Pharmacy Electronically, [facility]/pharmacy #[id number], Partial fill upon patient request if the [...] Acute 05/19/21 14:30:00 EST, :53:00 EST, Tablet, [facility], Partial fill upon patient request [...]
--- OUTSIDE RECORDS SUMMARY | 2023-09-25 20:04 | XMS_ITS | Continuity of Care Document ---
Author Organization [facility] Address Unknown Care Team Providers Care Appliance Service Supervisor Name Role Phone Estevan AVERY, Emeli Primary Care Physician Encounter [facility] Date(s): 03/06/21 - 05/09/21 [facility] Thoracic Surgery Attending Physician: Kristina Bullcok MD Allergies, Adverse Reactions, Alerts Substance Reaction [...] Maintenance, 11/18/20 12:24:00 EDT,Route to Pharmacy Electronically, [facility]/pharmacy #[id number], Partial fill upon patient request if the prescription is for a schedule II opioid drug., 180, cm,... Start Date: 11/18/20 Status: Ordered gabapentin 300 mg oral capsule 300 mg, 1, capsule, By Mouth, 3 times a day, # 90 capsule, Refills 0, Tot. Refills 0, Maintenance, 11/18/20 12:25:00 EDT, Route to Pharmacy Electronically, [facility]/pharmacy #[id number], Partial fill upon patient request if the prescription is for a schedule II... Start Date: 11/18/20 Status: Ordered lidocaine 5% topical film See Instructions, Topically Daily, # 30 patch, 0 Refills, Maintenance, 11/18/20 12:25:00 EDT, Patch, [facility]/pharmacy #[id number], Partial fill upon patient request if the prescription is for a schedule II opioid drug., Topically Daily, 180, cm, 11/12/20 10:09:... Start Date: 11/18/20 Status: Ordered Mavyret 100 mg-40 mg oral tablet 3 tablet, By Mouth, Daily, with food, # 84 tablet, 1 Refills, Acute 05/19/21 14:30:00 EST, :53:00 EST, Tablet, [facility], Partial fill upon patient [...] 11/18/20 12:27:00 EDT, Route to Pharmacy Electronically, [facility]/pharmacy #[id number], Partial fill upon patient request [...]
--- OUTSIDE RECORDS SUMMARY | 2023-09-25 20:04 | XMS_ITS | Continuity of Care Document ---
Author Organization [facility] Address [address] [place] [address]- Care Team Providers Care Salad Bar Clerk Name Role Phone Estevan AVERY, Emeli Primary Care Physician [phone] Encounter [facility] Date(s): 08/18/21 - 09/17/[address] [address] Attending Physician: Eloisa Erickson Admitting Physician: Eloisa [...] EST, Route to Pharmacy Electronically, [facility]/pharmacy #[id number], Partial fill upon patient request if the [...]
--- OUTSIDE RECORDS SUMMARY | 2023-09-25 20:04 | XMS_ITS | Continuity of Care Document ---
Author Organization [facility] Address [address] [place] [address]- Care Team Providers Care Supervisor Loading Name Role Phone Estevan AVERY, Emeli Primary Care Physician [facility] Date(s): 03/10/21 - 05/01/[address] [address] Attending Physician: Alyssa Gregorio MD Admitting Physician: Alyssa Gregorio MD Referring Physician: Alyssa Gregorio MD Allergies, Adverse Reactions, Alerts Substance Reaction [...] Maintenance, 11/18/20 12:24:00 EDT,Route to Pharmacy Electronically, [facility]/pharmacy #[id number], Partial fill upon patient request if the prescription is for a schedule II opioid drug., 180, cm,... Start Date: 11/18/20 Status: Ordered gabapentin 300 mg oral capsule 300 mg, 1, capsule, By Mouth, 3 times a day, # 90 capsule, Refills 0, Tot. Refills 0, Maintenance, 11/18/20 12:25:00 EDT, Route to Pharmacy Electronically, [facility]/pharmacy #[id number], Partial fill upon patient request if the prescription is for a schedule II... Start Date: 11/18/20 Status: Ordered lidocaine 5% topical film See Instructions, Topically Daily, # 30 patch, 0 Refills, Maintenance, 11/18/20 12:25:00 EDT, Patch, [facility]/pharmacy #[id number], Partial fill upon patient request if the prescription is for a schedule II opioid drug., Topically Daily, 180, cm, 11/12/20 10:09:... Start Date: 11/18/20 Status: Ordered Mavyret 100 mg-40 mg oral tablet 3 tablet, By Mouth, Daily, with food, # 84 tablet, 1 Refills, Acute 05/19/21 14:30:00 EST, :53:00 EST, Tablet, [facility], Partial fill upon patient [...] 11/18/20 12:27:00 EDT, Route to Pharmacy Electronically, [facility]/pharmacy #[id number], Partial fill upon [...]
--- OUTSIDE RECORDS SUMMARY | 2023-09-25 20:04 | XMS_ITS | Continuity of Care Document ---
Author Organization [facility] Address [address] [place] [address] [address] [place] [address]- Care Team Providers Care Leather Carver Name Role Phone Not on Staff, PCP Primary Care Physician Unavail able Encounter [facility] Date(s): 11/28/20 - 12/05/[address] [place] [address]- Attending Physician: Ronnie Noble MD Allergies, Adverse Reactions, Alerts Substance Reaction [...] 11/18/20 12:24:00 EDT, Route to Pharmacy Electronically, [facility]/pharmacy #[id number], Partialfill upon patient request if the prescription is fo... Start Date: 11/18/20 Stop Date: 01/14/21 Status: Ordered aspirin 81 mg oral tablet, chewable 81 mg, By Mouth, Daily, # 30 tablet, Refills 0, Tot. Refills 0, Maintenance, 11/18/20 12:24:00 EDT,Route to Pharmacy Electronically, [facility]/pharmacy #[id number], Partial fill upon patient request if the prescription is for a schedule II opioid drug., 180, cm,... Start Date: 11/18/20 Status: Ordered Colace sodium 100 mg oral [...] 12:25:00 EDT, Route to Pharmacy Electronically, [facility]/pharmacy #[id number], Partial fill upon patient request if the prescription is for a schedule II... Start Date: 11/18/20 Status: Ordered lidocaine 5% topical film See Instructions, Topically Daily, # 30 patch, 0 Refills, Maintenance, 11/18/20 12:25:00 EDT, Patch, [facility]/pharmacy #[id number], Partial fill upon patient request if the prescription is for a schedule II opioid drug., Topically Daily, 180, cm, 11/12/20 10:09:... Start Date: 11/18/20 Status: Ordered melatonin 3 mg oral tablet, extended release = 9 mg, By Mouth, Daily at bedtime, PRN Sleep, # 60 tablet, 0 Refills, Acute 01/14/21 12:00:00 EDT,11/18/20 12:26:00 EDT, ER Tablet, [facility]/pharmacy #[id number], Partial fill upon patient [...] 12:27:00 EDT, Route to Pharmacy Electronically, [facility]/pharmacy #[id number], Partial fill upon patient [...] Date: 11/18/20 Stop Date: 12/15/20 Status: Ordered traMADol 50 mg oral tablet 1 tablet = 50 mg, By Mouth, Every 6 hours, 0 Refills, Maintenance, 11/28/20 13:48:00 EDT, Partial fill upon patient request if the prescription is for a schedule II opioid drug. Start Date: 11/28/20 Status: Ordered Tylenol 325 mg oral tablet 975 mg, 3, tablet, By Mouth, Every 8 hours, # 50 tablet, Refills 0, Tot. Refills 0, Acute 12/15/20 12:00:00 EDT, 11/18/20 12:24:00 EDT, Route to Pharmacy Electronically, [facility]/pharmacy #[id number], Partial fill upon patient [...] oldest [Reference Range]: 1 Height 180 cm (11/28/20 1:39 PM) Pulse Rate [55-90 bpm] 98 bpm *H* (11/28/20 1:39 PM) Blood Pressure [90-138/55-84 mm Hg] 112/ 79mm Hg (11/28/20 1:39 PM) Temperature [96.8-100.4 DegF] 98.5 DegF (11/28/20 1:39 PM) Blood pressure sites Arm, right (11/28/20 1:39 PM) Temperature Route Temporal (11/28/20 1:39 PM) Social History Social History Type Response Smoking Status Never (less than 100 in lifetime) entered on: 11/12/20 Sex
--- OUTSIDE RECORDS SUMMARY | 2023-09-25 20:04 | XMS_ITS | Continuity of Care Document ---
Author Organization [facility] Address [address] [place] [address] [address] [place] [address]- Care Team Providers Care Geodetic Survey Director Name Role Phone Estevan AVERY, Emeli Primary Care Physician [facility] Date(s): 11/04/20 - 12/19/[address] [place], [place] [address] Attending Physician: Josh Borrego MD Allergies, Adverse [...] 12:24:00 EDT, Route to Pharmacy Electronically, [facility]/pharmacy #[id number], Partialfill upon patient request if [...] 12:00:00 EDT,11/18/20 12:26:00 EDT, ER Tablet, [facility]/pharmacy #[id number], Partial fill [...]
--- OUTSIDE RECORDS SUMMARY | 2023-09-25 20:04 | XMS_ITS | Continuity of Care Document ---
Author Organization [facility] Address Unknown Care Team Providers Care Counseling Department Chair Name Role Phone Emeli Barreto NP Primary Care Physician [phone] Encounter [facility] Date(s): 04/09/21 - 05/09/21 [facility] Thor[facility] Surgery Attending Physician: Eloisa Erickson Admitting Physician: AdmEloisa patel Referring Physician: Admtr, Ar8 Allergies, Adverse Reactions, [...] Maintenance, 11/18/20 12:24:00 EDT,Route to Pharmacy Electronically, [facility]/pharmacy #[id number], Partial fill upon patient request if the prescription is for a schedule II opioid drug., 180, cm,... Start Date: 11/18/20 Status: Ordered gabapentin 300 mg oral capsule 300 mg, 1, capsule, By Mouth, 3 times a day, # 90 capsule, Refills 0, Tot. Refills 0, Maintenance, 11/18/20 12:25:00 EDT, Route to Pharmacy Electronically, [facility]/pharmacy #[id number], Partial fill upon patient request if the prescription is for a schedule II... Start Date: 11/18/20 Status: Ordered lidocaine 5% topical film See Instructions, Topically Daily, # 30 patch, 0 Refills, Maintenance, 11/18/20 12:25:00 EDT, Patch, [facility]/pharmacy #[id number], Partial fill upon patient request if the prescription is for a schedule II opioid drug., Topically Daily, 180, cm, 11/12/20 10:09:... Start Date: 11/18/20 Status: Ordered Mavyret 100 mg-40 mg oral tablet 3 tablet, By Mouth, Daily, with food, # 84 tablet, 1 Refills, Acute 05/19/21 14:30:00 EST, :53:00 EST, Tablet, [facility], Partial fill upon patient [...] 11/18/20 12:27:00 EDT, Route to Pharmacy Electronically, [facility]/pharmacy #[id number], Partial fill upon patient [...]
--- OUTSIDE RECORDS SUMMARY | 2023-09-25 20:04 | XMS_ITS | Continuity of Care Document ---
Author Organization [facility] Address [address] [place] [address]- Care Team Providers Care Rotary Operator Name Role Phone Not on Staff, PCP Primary Care Physician Unavail able [facility] Date(s): 11/06/20 - 12/06/20 [facility] [address] [place] [id number] Allergies, Adverse Reactions, Alerts Substance Reaction Severity [...] 11/18/20 12:24:00 EDT, Route to Pharmacy Electronically, [facility]/pharmacy #[id number], Partialfill upon patient request if the prescription is fo... Start Date: 11/18/20 Stop Date: 01/14/21 Status: Ordered aspirin 81 mg oral tablet, chewable 81 mg, By Mouth, Daily, # 30 tablet, Refills 0, Tot. Refills 0, Maintenance, 11/18/20 12:24:00 EDT,Route to Pharmacy Electronically, [facility]/pharmacy #[id number], Partial fill upon patient [...] 11/18/20 12:25:00 EDT, Route to Pharmacy Electronically, [facility]/pharmacy #[id number], Partial fill upon patient request if the prescription is for a schedule II... Start Date: 11/18/20 Status: Ordered lidocaine 5% topical film See Instructions, Topically Daily, # 30 patch, 0 Refills, Maintenance, 11/18/20 12:25:00 EDT, Patch, [facility]/pharmacy #[id number], Partial fill upon patient request if the prescription is for a schedule II opioid drug., Topically Daily, 180, cm, 11/12/20 10:09:... Start Date: 11/18/20 Status: Ordered melatonin 3 mg oral tablet, extended release = 9 mg, By Mouth, Daily at bedtime, PRN Sleep, # 60 tablet, 0 Refills, Acute 01/14/21 12:00:00 EDT,11/18/20 12:26:00 EDT, ER Tablet, [facility]/pharmacy #[id number], Partial fill upon patient [...] 12:00:00 EDT, 11/18/20 12:26:00 EDT, REC Powder, [facility]/pharmacy #[id number], Partial fill upon patient [...] 11/18/20 12:27:00 EDT, Route to Pharmacy Electronically, [facility]/pharmacy #[id number], Partial fill upon patient [...] 11/18/20 12:24:00 EDT, Route to Pharmacy Electronically, [facility]/pharmacy #[id number], Partial fill upon patient [...] disord er (PTSD)(Confirmed) Active Scoliosis(Confirmed) 94 Active Social History Social History Type Response Smoking Status Never (less than 100 in lifetime) entered on: 11/12/20 Sex
--- OUTSIDE RECORDS SUMMARY | 2023-09-25 20:04 | XMS_ITS | Continuity of Care Document ---
Author Organization [facility] Address [address] [place] [address]- Care Team Providers Care Mine Car Dispatcher Name Role Phone Not on Staff, PCP Primary Care Physician Unavail able [facility]s): 11/13/20 - 12/13/20 [facility] [address] [place] [id number] Allergies, Adverse Reactions, Alerts Substance Reaction [...] 11/18/20 12:24:00 EDT, Route to Pharmacy Electronically, [facility]/pharmacy #[id number], Partialfill upon patient request if the prescription is fo... Start Date: 11/18/20 Stop Date: 01/14/21 Status: Ordered aspirin 81 mg oral tablet, chewable 81 mg, By Mouth, Daily, # 30 tablet, Refills 0, Tot. Refills 0, Maintenance, 11/18/20 12:24:00 EDT,Route to Pharmacy Electronically, [facility]/pharmacy #[id number], Partial fill upon patient request if the prescription is for a schedule II opioid drug., 180, cm,... Start Date: 11/18/20 Status: Ordered gabapentin 300 mg oral capsule 300 mg, 1, capsule, By Mouth, 3 times a day, # 90 capsule, Refills 0, Tot. Refills 0, Maintenance, 11/18/20 12:25:00 EDT, [id number] Partial fill upon patient request if the prescription is for a schedule II... Start Date: 11/18/20 Status: Ordered lidocaine 5% topical film See Instructions, Topically Daily, # 30 patch, 0 Refills, Maintenance, 11/18/20 12:25:00 EDT, Patch, [facility]/pharmacy #[id number], Partial fill upon patient request if the prescription is for a schedule II opioid drug., Topically Daily, 180, cm, 11/12/20 10:09:... Start Date: 11/18/20 Status: Ordered melatonin 3 mg oral tablet, extended release = 9 mg, By Mouth, Daily at bedtime, PRN Sleep, # 60 tablet, 0 Refills, Acute 01/14/21 12:00:00 EDT,11/18/20 12:26:00 EDT, ER Tablet, [facility]/pharmacy #[id number], Partial fill upon patient request if the prescription is for a schedule II opioid drug., 9 mg By... Start Date: 11/18/20 Stop Date: 01/14/21 Status: Ordered MiraLax oral powder for reconstitution = 17 Gm, By Mouth, Daily, dissolve in water before taking, # 255 Gm, 0 Refills, Acute 12/15/20 12:00:00 EDT, 11/18/20 12:26:00 EDT, REC Powder, [facility]/pharmacy #[id number], Partial fill upon patient [...] 11/18/20 12:27:00 EDT, Route to Pharmacy Electronically, [facility]/pharmacy #[id number], Partial fill upon patient [...] 11/18/20 12:24:00 EDT, Route to Pharmacy Electronically, [facility]/pharmacy #[id number], Partial fill upon patient [...]
--- OUTSIDE RECORDS SUMMARY | 2023-09-25 20:04 | XMS_ITS | Continuity of Care Document ---
Author Organization [facility] Address [address] [place] [address]- Care Team Providers Care Director Oracle Database Name Role Phone Estevan AVERY, Emeli Primary Care Physician [facility]): 08/13/21 - 09/12/21 [facility] [address] [place] [id number] Allergies, Adverse Reactions, Alerts Substance Reaction [...] 06/24/21 10:08:00 EST, [facility], [id number], Partial fill upon patient request if the [...]
--- OUTSIDE RECORDS SUMMARY | 2023-09-25 20:04 | XMS_ITS | Continuity of Care Document ---
Author Organization [facility] Franko Wright [facility] lt Address [address] [place] [address]- Care Team Providers Care Cosmetics Demonstrator Name Role Phone Dorcas Coulter Primary Care Physician [phone] [facility]counter [facility] Date[facility]s): 11/11/22 - 12/11/22 [facility] Franko Wright Adult [address] [place] [address]- Attending Physician: Admtr, Bry8 Admitting Physician: Admtr, Ar8 Referring Physician: Admtr, Ar8 Allergies, Adverse Reactions, [...] Team Personnel Name: Carmelo Cleaning RN Position: [facility] ED RN W/OE and Tasks Member Role: Primary Care Nurse Name: Abel Egan RN Position: [facility] RN Member Role: Primary Care Nurse Name: Sofi Lord RN Position: [facility] RN Member Role: Primary Care Nurse Name: Farheen Man RN Position: [facility] RN Member Role: Primary Care Nurse Name: Hermes Lazaro RN Position: [facility] RN Supv Member Role: Primary Care Nurse Name: Dorcas Coulter Position: [facility] PCO Associate Professional Member Role: PCP Address: Address: [address] [place] [address]- [place] Name: Alyssa Denson RN Position: [facility] RN Member Role: Primary Care Nurse Name: Tod Monzon RN Position: [facility] RN Member Role: Primary Care Nurse Name: Erum Farley NP Position: [facility] Associate Professional Member Role: Primary Care Nurse Address: Address: [address] [place] [address] [place] [address]- Care Team Related Persons Name: GUDELIA ZULETA Address: [address] [address] Name: AMISHA FARMER Address: home [address] [place] [address] Name: AMISHA FARMER Address: [address] [place] [address] Name: SHRUTHI BRADY Address: [address] [address]
--- OUTSIDE RECORDS SUMMARY | 2023-09-25 20:04 | XMS_ITS | Continuity of Care Document ---
Author Organization [facility] Kyle Rob Address [address] [place] [address]- Care Team Providers Care Photograph Editor Name Role Phone Not on Staff, PCP Primary Care Physician Unavail able [facility] Date[facility]s): 11/14/20 - 12/14/20 [facility] Adult [address] [place] [address]- Allergies, Adverse Reactions, Alerts Substance Reaction Severity [...] 11/18/20 12:24:00 EDT, Route to Pharmacy Electronically, [facility]/pharmacy #[id number], Partialfill upon patient request if the prescription is fo... Start Date: 11/18/20 Stop Date: 01/14/21 Status: Ordered aspirin 81 mg oral tablet, chewable 81 mg, By Mouth, Daily, # 30 tablet, Refills 0, Tot. Refills 0, Maintenance, 11/18/20 12:24:00 EDT,Route to Pharmacy Electronically, [facility]/pharmacy #[id number], Partial fill upon patient request if the prescription is for a schedule II opioid drug., 180, cm,... Start Date: 11/18/20 Status: Ordered gabapentin 300 mg oral capsule 300 mg, 1, capsule, By Mouth, 3 times a day, # 90 capsule, Refills 0, Tot. Refills 0, Maintenance, 11/18/20 12:25:00 EDT, [id number] Partial fill upon patient request if the prescription is for a schedule II... Start Date: 11/18/20 Status: Ordered lidocaine 5% topical film See Instructions, Topically Daily, # 30 patch, 0 Refills, Maintenance, 11/18/20 12:25:00 EDT, Patch, [facility]/pharmacy #[id number], Partial fill upon patient request if the prescription is for a schedule II opioid drug., Topically Daily, 180, cm, 11/12/20 10:09:... Start Date: 11/18/20 Status: Ordered melatonin 3 mg oral tablet, extended release = 9 mg, By Mouth, Daily at bedtime, PRN Sleep, # 60 tablet, 0 Refills, Acute 01/14/21 12:00:00 EDT,11/18/20 12:26:00 EDT, ER Tablet, [facility]/pharmacy #[id number], Partial fill upon patient request if the prescription is for a schedule II opioid drug., 9 mg By... Start Date: 11/18/20 Stop Date: 01/14/21 Status: Ordered MiraLax oral powder for reconstitution = 17 Gm, By Mouth, Daily, dissolve in water before taking, # 255 Gm, 0 Refills, Acute 12/15/20 12:00:00 EDT, 11/18/20 12:26:00 EDT, REC Powder, [facility]/pharmacy #[id number], Partial fill upon patient [...] 11/18/20 12:27:00 EDT, Route to Pharmacy Electronically, [facility]/pharmacy #[id number], Partial fill upon patient [...] 11/18/20 12:24:00 EDT, Route to Pharmacy Electronically, [facility]/pharmacy #[id number], Partial fill upon patient [...]
--- OUTSIDE RECORDS SUMMARY | 2023-09-25 20:04 | XMS_ITS | Continuity of Care Document ---
Author Organization [facility] Address [address] [place] [address]- Care Team Providers Care Window Decorator Name Role Phone Not on Staff, PCP Primary Care Physician Unavail able [place] [facility] [place] 12/12/20 [facility] [address] [place] [id number] Attending Physician: Dar Horan MD Admitting Physician: Dar Horan MD Referring Physician: Marissa Jara DO Allergies, [...] 11/18/20 12:24:00 EDT, Route to Pharmacy Electronically, [facility]/pharmacy #[id number], Partialfill upon patient request [...] 11/18/20 12:25:00 EDT, [facility] 01/14/21 12:00:00 EDT,11/18/20 12:26:00 EDT, ER Tablet, [facility]/pharmacy #[id number], Partial [...] 11/18/20 12:24:00 EDT, Route to Pharmacy Electronically, [id number], [...]
--- OUTSIDE RECORDS SUMMARY | 2023-09-25 20:04 | XMS_ITS | Continuity of Care Document ---
Author Organization [facility] Kyle Rob Address [address] [place] [address]- Care Team Providers Care Fpga Design Engineer Name Role Phone Emeli Barreto NP Primary Care Physician [phone] Encounter [facility] Date(s): 04/22/21 - 07/04/21 [facility] Adult [address] [place] [address]- Attending Physician: Emeli Barreto NP Allergies, Adverse Reactions, [...] 06/24/21 10:08:00 EST, Route to Pharmacy Electronically, [facility]/pharmacy #[id number], Partial fill upon patient request if the [...]
--- OUTSIDE RECORDS SUMMARY | 2023-09-25 20:04 | XMS_ITS | Continuity of Care Document ---
Author Organization [facility] Address [address] [place] [address], [address] [place] [address]- Care Team Providers Care Tongue And Groove Machine Setter Name Role Phone Estevan AVERY, Emeli Primary Care Physician Encounter [facility] Date(s): 12/13/20 - 12/20/20 [facility] [address] [place] [address], [address] [place], [place] [address] Attending Physician: Kristina Bullock MD Allergies, Adverse [...] 11/18/20 12:24:00 EDT, Route to Pharmacy Electronically, [facility]/pharmacy #[id number], Partialfill upon patient request if the prescription is fo... Start Date: 11/18/20 Stop Date: 01/14/21 Status: Ordered aspirin 81 mg oral tablet, chewable 81 mg, By Mouth, Daily, # 30 tablet, Refills 0, Tot. Refills 0, Maintenance, 11/18/20 12:24:00 EDT,Route to Pharmacy Electronically, [facility]/pharmacy #[id number], Partial fill upon patient request if the prescription is for a schedule II opioid drug., 180, cm,... Start Date: 11/18/20 Status: Ordered gabapentin 300 mg oral capsule 300 mg, 1, capsule, By Mouth, 3 times a day, # 90 capsule, Refills 0, Tot. Refills 0, Maintenance, 11/18/20 12:25:00 EDT, Route to Pharmacy Electronically, [facility]/pharmacy #[id number], Partial fill upon patient request if the prescription is for a schedule II... Start Date: 11/18/20 Status: Ordered lidocaine 5% topical film See Instructions, Topically Daily, # 30 patch, 0 Refills, Maintenance, 11/18/20 12:25:00 EDT, Patch, [facility]/pharmacy #[id number], Partial fill upon patient request if the prescription is for a schedule II opioid drug., Topically Daily, 180, cm, 11/12/20 10:09:... Start Date: 11/18/20 Status: Ordered melatonin 3 mg oral tablet, extended release = 9 mg, By Mouth, Daily at bedtime, PRN Sleep, # 60 tablet, 0 Refills, Acute 01/14/21 12:00:00 EDT,11/18/20 12:26:00 EDT, ER Tablet, [facility]/pharmacy #[id number], Partial fill upon patient request [...] 11/18/20 12:27:00 EDT, Route to Pharmacy Electronically, [facility]/pharmacy #[id number], Partial fill upon patient request [...] Scoliosis(Confirmed) 94 Active Pneumatocele of lung(Confirmed) Active Vital Signs Most recent to oldest [Reference Range]: 1 Height 180 cm (12/13/20 10:47 AM) Oxygen Saturation [94-100 %] 99 % (12/13/20 10:47 AM) Pulse Rate [55-90 bpm] 86 bpm (12/13/20 10:47 AM) Blood Pressure [90-138/55-84 mm Hg] 120/ 82mm Hg (12/13/20 10:47 AM) Temperature [96.8-100.4 DegF] 97.8 DegF (12/13/20 10:47 AM) Blood pressure sites Arm, right (12/13/20 10:47 AM) Temperature Route Temporal (12/13/20 10:47 AM) Social History Social History Type Response Smoking Status Former smoker, quit more than 30 days ago entered on: 12/13/20 Sex
--- OUTSIDE RECORDS SUMMARY | 2023-09-25 20:04 | XMS_ITS | Continuity of Care Document ---
Author Organization [facility] Address [address] [place] [address]- Care Team Providers Care Tapping Machine Operator Name Role Phone Emeli Barreto NP Primary Care Physician [place] [facility] [place] 04/18/21 - 05/22/21 [facility] [address] [place] [id number] Attending Physician: Not on Staff, Attending MD Allergies, Adverse Reactions, Alerts Substance Reaction [...] on dose from pharmacy 3Admin Note: VIS GIVEN---MIRELLA, SANOFI PASTEUR 4Early/Late Reason: Early/Late Reason: Other [...] Maintenance, 11/18/20 12:24:00 EDT,Route to Pharmacy Electronically, [facility]/pharmacy #[id number], Partial fill upon patient request if the prescription is for a schedule II opioid drug., 180, cm,... Start Date: 11/18/20 Status: Ordered gabapentin 300 mg oral capsule 300 mg, 1, capsule, By Mouth, 3 times a day, # 90 capsule, Refills 0, Tot. Refills 0, Maintenance, 11/18/20 12:25:00 EDT, Route to Pharmacy Electronically, [facility]/pharmacy #[id number], Partial fill upon patient request if the prescription is for a schedule II... Start Date: 11/18/20 Status: Ordered lidocaine 5% topical film See Instructions, Topically Daily, # 30 patch, 0 Refills, Maintenance, 11/18/20 12:25:00 EDT, Patch, [facility]/pharmacy #[id number], Partial fill upon patient request [...] 11/18/20 12:27:00 EDT, Route to Pharmacy Electronically, [facility]/pharmacy #[id number], Partial fill upon patient request [...]
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
--- OUTSIDE RECORDS SUMMARY | 2023-09-25 20:04 | XMS_ITS | Continuity of Care Document ---
Author Organization [facility] Kyle Rob Address [address] [place] [address]- Care Team Providers Care Scissors Grinder Name Role Phone Emeli Barreto NP Primary Care Physician Encounter [facility] Date(s): 08/12/21 - 08/19/21 [facility] [address] [place] [address]- Encounter Diagnosis Annual physical exam(Discharge Diagnosis) - 08/12/21 Depression(Discharge Diagnosis) - 08/12/21 Chronic pain(Discharge Diagnosis) - 08/12/21 History of hepatitis C(Discharge Diagnosis) - 08/12/21 Attending Physician: Emeli Barreto NP Allergies, Adverse [...] 06/24/21 10:08:00 EST, Route to Pharmacy Electronically, [facility]/pharmacy #[id number], Partial fill upon patient request if the [...] lung(Confirmed) Active Thrombocytosis(Confirmed) Active Brain injury(Confirmed) Active Diagnosis Diagnosis Type Effective Dates Health Status Clinical Service Informant Annual physical exam Discharge Diagnosis 08/12/21 Depression Discharge Diagnosis 08/12/21 Chronic pain Discharge Diagnosis 08/12/21 History of hepatitis C Discharge Diagnosis 08/12/21 Vital Signs Most recent to oldest [Reference Range]: 1 Height 180 cm (08/12/21 2:35 PM) Weight 60.8 kg (08/12/21 2:35 PM) Oxygen Saturation [94-100 %] 100 % (08/12/21 2:35 PM) Pulse Rate [55-90 bpm] 94 bpm *H* (08/12/21 2:35 PM) Body Mass Index [18.5-24.99] 18.77 (08/12/21 2:35 PM) Blood Pressure [90-138/55-84 mm Hg] 131/ 72mm Hg (08/12/21 2:35 PM) Blood pressure sites Arm, right (08/12/21 2:35 PM) Social History Social History Type Response Smoking Status Former smoker, quit more than 30 days ago entered on: 12/13/20 Sex
--- OUTSIDE RECORDS SUMMARY | 2023-09-25 20:04 | XMS_ITS | Continuity of Care Document ---
Author Organization [facility] Address [address] [place] [address]- Care Team Providers Care Director Dance Name Role Phone Emeli Barreto NP Primary Care Physician Encounter [facility] [place] Date(s): 03/21/21 - 04/20/21 [facility] [address] [place] [address]- Attending Physician: Eloisa Erickson Admitting Physician: Eloisa [...] 11/18/20 12:24:00 EDT,Route to Pharmacy Electronically, [facility]/pharmacy #[id number], Partial fill upon patient request if the prescription is for a schedule II opioid drug., 180, cm,... Start Date: 11/18/20 Status: Ordered gabapentin 300 mg oral capsule 300 mg, 1, capsule, By Mouth, 3 times a day, # 90 capsule, Refills 0, Tot. Refills 0, Maintenance, 11/18/20 12:25:00 EDT, Route to Pharmacy Electronically, [facility]/pharmacy #[id number], Partial fill upon patient request if the prescription is for a schedule II... Start Date: 11/18/20 Status: Ordered lidocaine 5% topical film See Instructions, Topically Daily, # 30 patch, 0 Refills, Maintenance, 11/18/20 12:25:00 EDT, Patch, [facility]/pharmacy #[id number], Partial fill upon patient request if the prescription is for a schedule II opioid drug., Topically Daily, 180, cm, 11/12/20 10:09:... Start Date: 11/18/20 Status: Ordered Mavyret 100 mg-40 mg oral tablet 3 tablet, By Mouth, Daily, with food, # 84 tablet, 1 Refills, Acute 05/19/21 14:30:00 EST, :53:00 EST, Tablet, [facility], Partial fill upon patient [...] 12:27:00 EDT, Route to Pharmacy Electronically, [facility]/pharmacy #[id number], Partial fill upon patient request if [...]
--- OUTSIDE RECORDS SUMMARY | 2023-09-25 20:05 | XMS_ITS | Continuity of Care Document ---
Author Organization [facility] Address [address] [place] [address]- Care Team Providers Care President Celebrity Acquistion Name Role Phone Emeli Barreto NP Primary Care Physician [place] [facility] [place] 11/19/20 - 12/19/20 [facility] [address] [place], [place] [address] Attending Physician: Eloisa Erickson Admitting Physician: AdmEloisa [...] 11/18/20 12:24:00 EDT, Route to Pharmacy Electronically, [facility]/pharmacy #[id number], Partialfill upon patient request if the prescription is fo... Start Date: 11/18/20 Stop Date: 01/14/21 Status: Ordered aspirin 81 mg oral tablet, chewable 81 mg, By Mouth, Daily, # 30 tablet, Refills 0, Tot. Refills 0, Maintenance, 11/18/20 12:24:00 EDT,Route to Pharmacy Electronically, [facility]/pharmacy #[id number], Partial fill upon patient request if the prescription is for a schedule II opioid drug., 180, cm,... Start Date: 11/18/20 Status: Ordered gabapentin 300 mg oral capsule 300 mg, 1, capsule, By Mouth, 3 times a day, # 90 capsule, Refills 0, Tot. Refills 0, Maintenance, 11/18/20 12:25:00 EDT, Route to Pharmacy Electronically, [facility]/pharmacy #[id number], Partial fill upon patient request if the prescription is for a schedule II... Start Date: 11/18/20 Status: Ordered lidocaine 5% topical film See Instructions, Topically Daily, # 30 patch, 0 Refills, Maintenance, 11/18/20 12:25:00 EDT, Patch, [facility]/pharmacy #[id number], Partial fill upon patient request if the prescription is for a schedule II opioid drug., Topically Daily, 180, cm, 11/12/20 10:09:... Start Date: 11/18/20 Status: Ordered melatonin 3 mg oral tablet, extended release = 9 mg, By Mouth, Daily at bedtime, PRN Sleep, # 60 tablet, 0 Refills, Acute 01/14/21 12:00:00 EDT,11/18/20 12:26:00 EDT, ER Tablet, [facility]/pharmacy #[id number], Partial fill upon [...] 11/18/20 12:27:00 EDT, Route to Pharmacy Electronically, [facility]/pharmacy #[id number], Partial fill upon [...]
[2023-09-25 22:00] VITALS: BMI 19.4
[2023-09-25 22:39] VITALS: BP 129/68; PULSE 73; RESP 16; TEMP 36.7; O2SAT 98
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
[2023-09-26 08:30] VITALS: BP 128/79; PULSE 103; RESP 16; TEMP 36.9; O2SAT 97
--- NOTE | 2023-09-26 08:34 | HO.PSYADMNOT ---
HPI Date of Service: 09/26/23 Chief Complaint: Depression, unspecified Sources of Information: patient interviewed, chart reviewed and crisis/core team assessment reviewed HPI Subjective Notes: [place] Warning and Conditional Voluntary Narrative: Patient is a 28 year old male with hx of PTSD, ADHD, who presented to ER d/t suicide attempt of swallowing pills (lamotrigine) secondary to patient's girlfriend finding out he was being unfaithful. Per crisis report, pt has a PMH of ADHA, oppositional defiant d/o, TBI and PTSD. Pt took 20-30 pills of his girlfriend's prescribed Lamotrigine. Pt reports hx of anxiety and depression d/t past trauma. OD on Nyquil at age 14 and was hospitalized psychiatrically; unclear to location. Pt reports he was stressed after an argument with his girlfriend of two years; pt's girlfriend found out pt has been unfaithful since June. During admission assessment, pt presents calm, cooperative and pleasant. Pt remorseful regarding overdose. Pt stated, I did something stupid. It was the stupidest thing I did. My girlfriend broke up with me because she found out I was cheating. I decided to take the pills because I was just trying to get attention. She gave me a second chance . Pt denies SI/HI/VH/AH. 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 Pt stated, I want to go to school to become a therapist and help people . Discussed risks/benefits of medications; pt stated, I don't think I need any medication right now. I'm normally level headed. I just have ADHD. I took something for it when I was younger but I don't want anything right now . pt signed 3 day notice; pt stated, I don't belong here. These people are really sick . Past Psychiatric History: age 14 pt took bottle of Nyquil and was hospitalized psychiatrically; pt does not recall location or timeframe. hx of cutting at age 15; denies SIB currently. Pt reports hx of therapy and medications but has not engaged in therapy since age 15. hx of medication: Seroquel. Medical Evaluation Reviewed: Yes [facility] Medical History Congenital absence of right external ear Family History: Sister: depression father: Bipolar d/o, hx of ETOH and crack/cocaine use. Social History: lives in an apartment with girlfriend, no children, works in a food truck and HVAC. Completed 10th grade, obtained GED. Substance History: Pt reports smoking marijuana daily. denies any other substance use. Trauma History: yes Diagnostics Vital Signs (24Hr): Vital Signs - 24 hr 09/25/23 22:39 Temperature 98.1 F Pulse Rate 73 Respiratory Rate 16 Blood Pressure 129/68 Pulse Oximetry 98 Oxygen Delivery Method Room Air BMI result Body Mass Index 19.4 Labs 09/26/23 08:48 Meds/Allergies Allergies Allergies Allergy/AdvReac Type Severity Reaction Status Date / Time adhesive Allergy Rash Verified 09/25/23 21:59 adhesive tape Allergy Rash Verified 09/25/23 21:59 transparent dressing Allergy Rash Verified 09/25/23 21:59 [Tegaderm] Mental Status Exam Mental Status Exam Narrative: Pt is alert and oriented; behavior is cooperative, friendly and calm; dressed in casual attire; mood is described as good ; eye contact appropriate; Speech is rapid rate, normal volume; thought process is organized and goal directed; Thought content is on discharge; otherwise pertinent to relevant topics and without any delusional content, paranoid ideations or grandiosity; denies SI/HI/VH/AH. Assessment & Plan Assessment & Plan (1) Adjustment disorder: Status: Acute Code(s): F43.20 - Adjustment disorder, unspecified (2) PTSD (post-traumatic stress disorder): Status: Acute Code(s): F43.10 - Post-traumatic stress disorder, unspecified (3) TBI (traumatic brain injury): Status: Acute Code(s): S06.9XAA - Unspecified intracranial injury with loss of consciousness status unknown, initial encounter (4) ADHD: Status: Acute Code(s): F90.9 - Attention-deficit hyperactivity disorder, unspecified type Plan Patient is a 28 year old male with hx of PTSD, ADHD, who presented to ER d/t suicide attempt of swallowing pills (lamotrigine) secondary to patient's girlfriend finding out he was being unfaithful. Plan: /3 day notice 15 minute safety checks obtain collateral Review need for medications again referral to therapist discharge planning Patient educated on: diagnosis, medication risk/benefits, substance abuse and therapeutic strategies Informed Consent: understands Reason for continued inpatient stay Substantial Risk for: med/psych decompensation Statement Statement: I have reviewed the history and physical and performed a pertinent examination on my patient. No changes have occurred unless specified. If the History and Physical was not performed prior to admission, the Hospitalist's service will be consulted for completing the admission physical. Time Spent With Patient Time: Total time managing care of this patient today _60___ minutes.
[2023-09-26 09:14] LABS: Alanine Aminotransferase 15 U/L (0-40); Albumin Level 4.9 g/dL (3.5-5.0); Alkaline Phosphatase 106 U/L (39-117); Anion Gap 14 (12-20); Aspartate Amino Transferase 17 U/L (5-37); Bilirubin Total 0.4 mg/dL (0.0-1.0); Blood Urea Nitrogen 9 mg/dL (9-16); Calcium 10.1 mg/dL (8.4-10.2); Carbon Dioxide 25 mmol/L (22-29); Chloride 106 mmol/L (96-108); Cholesterol 194 mg/dL (<200); Creatinine Clr Calc Pharmacy 124.6; Estimated Glomerular Filt Rate > 60; Glucose Fasting 105 mg/dL (60-99); HDL Cholesterol 53 mg/dL (>40); LDL Cholesterol Calculated 128 mg/dL (<100); Sodium 141 mmol/L (135-145); Total Protein 8.2 g/dL (6.5-8.0); Triglycerides 65 mg/dL (<150)
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
[2023-09-26 20:00] VITALS: BP 123/79; PULSE 71; RESP 16; TEMP 37.1; O2SAT 100
[2023-09-27] MEDS: Magnesium Hydrox/Alum Hydrox 30 ML ORAL.SUSP PO (06:05)
[2023-09-27 08:00] VITALS: BP 117/81; PULSE 71; RESP 16; TEMP 35.9; O2SAT 97
--- NOTE | 2023-09-27 13:28 | MHC.RECOVRN ---
AUDIT-C Brief Intervention Pt had positive screen for unhealthy alcohol use on admission. Pt declined to meet with [facility] to discuss alcohol use and resources.
[2023-09-27 19:50] VITALS: BP 119/67; PULSE 86; RESP 16; TEMP 36.2; O2SAT 96
--- NOTE | 2023-09-27 21:41 | PM.PSYDC ---
DS: Providers Provider Date of Service: 09/27/23 Date of admission: 09/25/23 19:59 Primary care physician: Unknown Physician Consults: 09/25/23 22:28 Consult to Hospitalist Routine Comment: Consulting Provider: Hospitalist Reason For Exam: adm haley s/p OD 09/26/23 09:00 Addiction Medicine Routine Consulting Provider: Addiction Covering Reason for consultation: Positive Screening DS: Diagnosis Discharge Diagnosis (1) Adjustment disorder: Status: Acute (2) PTSD (post-traumatic stress disorder): Status: Acute (3) TBI (traumatic brain injury): Status: Acute (4) ADHD: Status: Acute Mental Status Exam Mental Status Exam Narrative: Pt is alert and oriented; behavior is cooperative, friendly and calm; dressed in casual attire; mood is described as feeling great ; eye contact appropriate; Speech is rapid rate, normal volume; thought process is organized and goal directed; Thought content is on discharge; otherwise pertinent to relevant topics and without any delusional content, paranoid ideations or grandiosity; denies SI/HI/VH/AH. Data Data Completed and Pending Completed studies during hospitalization [Text1]: 09/26/23 08:48 Sodium 141 Potassium 4.0 Chloride 106 Carbon Dioxide 25 Anion Gap 14 BUN 9 Creatinine 0.78 Estim Creat Clear Calc 124.6 Estimated GFR > 60 Fasting Glucose 105 H Calcium 10.1 Total Bilirubin 0.4 AST 17 ALT 15 Alkaline Phosphatase 106 Total Protein 8.2 H Albumin 4.9 Triglycerides 65 Cholesterol 194 LDL Cholesterol, Calc 128 H HDL Cholesterol 53 DS: Summary Hospital Course Hospital Course: per 09/25 admission note: Patient is a 28 year old male with hx of PTSD, ADHD, who presented to ER d/t suicide attempt of swallowing pills (lamotrigine) secondary to patient's girlfriend finding out he was being unfaithful. Per crisis report, pt has a PMH of ADHA, oppositional defiant d/o, TBI and PTSD. Pt took 20-30 pills of his girlfriend's prescribed Lamotrigine. Pt reports hx of anxiety and depression d/t past trauma. OD on Nyquil at age 14 and was hospitalized psychiatrically; unclear to location. Pt reports he was stressed after an argument with his girlfriend of two years; pt's girlfriend found out pt has been unfaithful since June. During admission assessment, pt presents calm, cooperative and pleasant. Pt remorseful regarding overdose. Pt stated, I did something stupid. It was the stupidest thing I did. My girlfriend broke up with me because she found out I was cheating. I decided to take the pills because I was just trying to get attention. She gave me a second chance . Pt denies SI/HI/VH/AH. 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 Pt stated, I want to go to school to become a therapist and help people . Discussed risks/benefits of medications; pt stated, I don't think I need any medication right now. I'm normally level headed. I just have ADHD. I took something for it when I was younger but I don't want anything right now . pt signed 3 day notice; pt stated, I don't belong here. These people are really sick . Past Psychiatric History: age 14 pt took bottle of Nyquil and was hospitalized psychiatrically; pt does not recall location or timeframe. hx of cutting at age 15; denies SIB currently. Pt reports hx of therapy and medications but has not engaged in therapy since age 15. hx of medication: Seroquel. Medical Evaluation Reviewed: Yes [facility] Medical History Congenital absence of right external ear Family History: Sister: depression father: Bipolar d/o, hx of ETOH and crack/cocaine use. Social History: lives in an apartment with girlfriend, no children, works in a [employer] truck and [employer]. Completed 10th grade, obtained GED. Substance History: Pt reports smoking marijuana daily. denies any other substance use. Trauma History: yes Plan Patient is a 28 year old male with hx of PTSD, ADHD, who presented to ER d/t suicide attempt of swallowing pills (lamotrigine) secondary to patient's girlfriend finding out he was being unfaithful. Plan: / day notice 15 minute safety checks obtain collateral Review need for medications again referral to therapist discharge planning 09/26: stable, no SI, asking for discharge. 3-day notice up 09/28. plan for discharge tomorrow. doesn't want meds, would like therapy referral. 09/27: referrals in place, discharged as per plan. Time Spent with Patient Time attestation: Total time managing care of this patient today _35___ minutes. Discharge Plan Discharge Anticipated Discharge Date/Time: 09/28/23 11:00 Patient Disposition: Home, Self-Care Discharge Diagnosis: PTSD, Chronic s/p TBI ADHD Referrals: Therapy [Other] - 1 Week (*Please present to the location above, Wednesday through Wednesday between the hours of 8am and 8pm, in order to obtain a therapist. Please bring a photo ID and your insurance card with you. ) [facility] [Provider Group] - 1 Week (Pt may use walk in clinic as needed ) Discharge Orders: Discharge Order (Routine); Ordered 09/28/23 Ordered By: Sheldon Horan Diet: Advance to usual diet Activity on Discharge: As tolerated Stand Alone Forms: Patient Portal Discharge page, Community Support Print Language: Hungarian Care Plan Goals: remain safe and stable in the outpatient treatment setting Health Concerns: none Plan of Treatment: engage with therapist in the outpatient treatment setting. consider medications for ADHD and PTSD. Assessment: not at imminent risk of harm to self or others Discharge Date/Time: 09/28/23 10:25
[2023-09-28 08:00] VITALS: BP 112/66; PULSE 82; RESP 18; TEMP 36.4; O2SAT 99
== END 2023-09-28 10:25 | disposition home or self-care (01) | DRG 882 ==
PROVIDERS: Admitting Provider Psychiatry & Neurology Psychiatry; Visit Provider Psychiatry & Neurology Psychiatry
DX: F43.20 Adjustment disorder, unspecified (principal); F43.12 Post-traumatic stress disorder, chronic; Q16.0 Congenital absence of (ear) auricle; F90.9 Attention-deficit hyperactivity disorder, unspecified type; Z87.820 Personal history of traumatic brain injury; Z87.891 Personal history of nicotine dependence; Z91.52 Personal history of nonsuicidal self-harm; Z91.51 Personal history of suicidal behavior
CPT/HCPCS: 36415; 80053; 80061

== ENCOUNTER → 2023-09-25 19:59 | Outpatient (BNV) | payer SELFPAY | PROVIDERS: Admitting Provider Psychiatry & Neurology Psychiatry; Visit Provider Registered Nurse | DX: F43.20 Adjustment disorder, unspecified (principal); F43.11 Post-traumatic stress disorder, acute; F90.9 Attention-deficit hyperactivity disorder, unspecified type | CPT/HCPCS: 99231; 99232; 99233 ==

== ENCOUNTER → 2023-09-25 19:59 | Outpatient (BNV) | payer MEDICAID, SELFPAY | PROVIDERS: Admitting Provider Psychiatry & Neurology Psychiatry; Visit Provider Physician Assistant | DX: Z00.00 Encounter for general adult medical examination without abnormal findings (principal) | CPT/HCPCS: 99222 ==